=== PATIENT | female | born 1955 | race Caucasian/White ===

== ENCOUNTER 2025-03-27 11:51 | Inpatient (IN) | payer OTHER ==
[~2025-03-27] VITALS: Ht 162.6 cm; Wt 73.5 kg
--- NOTE | 2025-03-27 12:25 | EKG ---
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
[2025-03-27 12:56] LABS: IMMATURE GRANULOCYTE ABSOLUTE 0.54 K/uL (0-1); NUCLEATED RED BLOOD CELLS 0.2 % (0.0-0.19); PLATELET COUNT (AUTO) 229 K/uL (130-400); RED BLOOD CELL COUNT(AUTO) 4.11 MIL/uL (4.00-5.50); RED CELL DISTRIBUTION WIDTH 14.1 % (11.0-15.5); WHITE BLOOD COUNT (AUTO) 10.3 K/uL (4.8-10.8)
[2025-03-27] MEDS: 0.9%NACL 1000ML 1,000 ML IV STA (13:01)
[2025-03-27 13:20] LABS: ASPARTATE AMINOTRANSFERASE 24.0 U/L (10-37); CREATININE 0.8 mg/dL (0.5-1.0); GLOMERULAR FILTR. RATE CALC 79.0 mL/min (>90); GLUCOSE,RANDOM 133.0 mg/dL (70-105); SODIUM SERUM 137.0 mmol/L (136-145); TOTAL PROTEIN, SERUM 5.7 g/dL (6.0-8.3); UREA NITROGEN, BLOOD 39.0 mg/dL (7-18)
--- NOTE | 2025-03-27 13:21 | HMCIMG ---
EXAM: CR Chest, 1 View. CLINICAL HISTORY: sob COMPARISON: None provided. FINDINGS: LUNGS: The lungs show no infiltrate or other acute finding. PLEURAL SPACES: No evidence of pleural effusion or pneumothorax. MEDIASTINUM: Cardiac size and mediastinal contours within normal limits. BONES: No aggressive appearing osseous lesion seen. Cervical and thoracolumbar hardware. IMPRESSION: 1. No acute cardiopulmonary findings. /[place]
[2025-03-27 13:47] LABS: APPEARANCE,URINE CLEAR (CLEAR); GLUCOSE, URINE (UA) NEGATIVE (NEGATIVE); LEUKOCYTE ESTERASE ,URINE NEGATIVE Leu/uL (NEGATIVE); NITRATE,URINE NEGATIVE (NEGATIVE); OCCULT BLOOD,URINE NEGATIVE (NEGATIVE)
[2025-03-27 13:48] LABS: ADD UA MICROSCOPIC NO
--- NOTE | 2025-03-27 13:53 | ERN ---
ED Note History of Present Illness Stated Complaint: LUPUS, EYES SWELLING Chief Complaint: Other Problems Time Seen by MD: 11:59 Time Seen by Midlevel: 12:04 Dictation: 70 female with a history of lupus, RA and hypertension coming in with complaints of lupus flare. Patient states she has been sleeping all day and that is not like her, complaining of trouble catching her breath and controlling her blood pressure. Also states she has had diarrhea for two weeks with swollen eyelids. Patient states she is taking o[place]on from [place] for six weeks, sees a doctor in [place] and told her that she needed him with a bolus unknown but she was unable to obtain it in [place]. On my triage patient is anxious crying also stating that her grandson one week ago. Signs are stable on upon my triage. Allergies: Coded Allergies: Penicillins (Unverified Allergy, Unknown, 03/27/25) Past Medical History Past Medical History: Angina, Renal Failure, Other Additional Past Medical Hx: LUPUS Surgical History: None Surgical History Other: BACK SURGERIES, JULIA KNEE SX History: Not Applicable RN Note Reviewed/Agreed w/PFSH: Yes Review of System Dictation Constitutional: Negative for fever,chills, and weight loss Eyes: Negative for injury, pain,redness, and discharge ENT: Negative for injury,pain or swelling Cardiovascular: Negative for chest pain, palpitations, and edema Respiratory: Negative for shortness of breath, cough, and wheezing, Abdomen/GI: Negative for abdominal pain, nausea, vomiting, diarrhea, and constipation Back: Negative for injury and pain : Negative for injury, bleeding and discharge MS/Extremity: Negative for injury and deformity Skin: Negative for rash, and discoloration Neuro: Negative for headache, weakness, numbness, tingling, and seizure Psych: Negative for suicide ideation, homicidal ideation, and hallucinations Review of Systems: was completed Initial Vital Sign VS Vital Signs Date Time Temp Pulse Resp B/P (MAP) Pulse Ox O2 Delivery O2 Flow Rate FiO2 03/27/25 11:53 98.2 98 18 163/86 98 Room Air 03/27/25 12:45 0 21 Physical Exam Dictation General: awake, alert, NAD Head/Face: Normocephalic, atraumatic Eyes: PERRL, EOMI, vision at baseline ENT: oral cavity clear, TMs clear, no signs of infection Neck: Trachea midline, supple, no nuchal rigidity Cardiovascular: RRR, normal S1/S2, No MRGs, no JVD Respiratory: CTAB, no respiratory distress, No rales or wheezes Abdomen: Soft, non-tender, non-distended, normal bowel sounds, no guarding or rebound. Skin: Warm, dry, normal turgor, no rash MS/Extremity: Pulses equal, no cyanosis, neurovascular intact, FROM Neuro: COAx4, GCS 15, strength 5/5, CN 2-12 intact, normal cerebellar exam, normal gait, Psych: Normal behavior, mood, and affect normal Results (Laboratory/Radiology) Laboratory/Radiology Laboratory Tests Test 03/27/25 12:44 03/27/25 13:37 White Blood Count 10.3 K/uL (4.8-10.8) Red Blood Count 4.11 MIL/uL (4.00-5.50) Hemoglobin 12.3 g/dL (12.0-16.0) Hematocrit 36.6 % (36-48) Mean Corpuscular Volume 89.1 fL (79-99) Mean Corpuscular Hemoglobin 29.9 pg (27.0-33.0) Mean Corpuscular Hemoglobin Concent 33.6 g/dL (32.0-36.0) Red Cell Distribution Width 14.1 % (11.0-15.5) Platelet Count 229 K/uL (130-400) Mean Platelet Volume 9.2 fL (7.5-10.5) Immature Granulocyte % (Auto) 5.2 % (0-1) H Neutrophils (%) (Auto) 83.5 % (40.0-77.0) H Lymphocytes (%) (Auto) 5.3 % (21.0-51.0) L Monocytes (%) (Auto) 5.7 % (3.0-13.0) Eosinophils (%) (Auto) 0.0 % (0.0-8.0) Basophils (%) (Auto) 0.3 % (0.0-5.0) Neutrophils # (Auto) 8.6 K/uL (1.8-7.7) H Lymphocytes # (Auto) 0.6 K/uL (1.0-4.8) L Monocytes # (Auto) 0.6 K/uL (0.1-1.0) Eosinophils # (Auto) 0.00 K/uL (0.00-0.70) Basophils # (Auto) 0.03 K/uL (0.00-0.20) Absolute Immature Granulocyte (auto 0.54 K/uL (0-1) Nucleated Red Blood Cells 0.2 % (0.0-0.19) H White Cell Morphology Comment See comments Erythrocyte Sedimentation Rate < 1 MM/HR (0-30) Sodium Level 137 mmol/L (136-145) Potassium Level 3.7 mmol/L (3.5-5.1) Chloride Level 97 mmol/L (101-111) L Carbon Dioxide Level 34 mmol/L (21-32) H Blood Urea Nitrogen 39 mg/dL (7-18) H Creatinine 0.8 mg/dL (0.5-1.0) Glomerular Filtration Rate Calc 79 mL/min (>90) Random Glucose 133 mg/dL (70-105) H Lactic Acid Level 3.0 mmol/L (0.8-2.5) H Total Calcium 8.4 mg/dL (8.5-10.1) L Total Bilirubin 0.7 mg/dL (0.2-1.0) Direct Bilirubin 0.2 mg/dL (0.0-0.3) Aspartate Amino Transf (AST/SGOT) 24 U/L (10-37) Alanine Aminotransferase (ALT/SGPT) 63 U/L (12-78) Alkaline Phosphatase 39 U/L (50-136) L Troponin I High Sensitivity 167 ng/L (4-50) *H C-Reactive Protein, Quantitative 0.60 mg/L (0.5-3.0) Total Protein 5.7 g/dL (6.0-8.3) L Albumin 3.1 g/dL (3.5-5.0) L Lipase 57 U/L (16-77) Thyroid Stimulating Hormone (TSH) 0.02 uIU/mL (0.36-3.74) L Urine Color LIGHT-YELLOW (YELLOW) Urine Appearance CLEAR (CLEAR) Urine pH 7.0 (5.0-8.0) Urine Specific [place] 1.008 (1.001-1.031) Urine Protein NEGATIVE mg/dL (NEGATIVE) Urine Glucose (UA) NEGATIVE mg/dL (NEGATIVE) Urine Ketones NEGATIVE mg/dL (NEGATIVE) Urine Occult Blood NEGATIVE (NEGATIVE) Urine Nitrate NEGATIVE (NEGATIVE) Urine Bilirubin NEGATIVE mg/dL (NEGATIVE) Urine Urobilinogen 0.2 mg/dL (0.2-1.0) Urine Leukocyte Esterase NEGATIVE Nathanael/uL M: CR Chest, 1 View. CLINICAL HISTORY: sob COMPARISON: None provided. FINDINGS: LUNGS: The lungs show no infiltrate or other acute finding. PLEURAL SPACES: No evidence of pleural effusion or pneumothorax. MEDIASTINUM: Cardiac size and mediastinal contours within normal limits. BONES: No aggressive appearing osseous lesion seen. Cervical and thoracolumbar hardware. IMPRESSION: 1. No acute cardiopulmonary findings. /[place] Labs Reviewed?: Yes EKG Comment: EKGs done at 12:19 p.m.. Sinus rhythm at a rate of 81. Probable left atrial enlargement. No STEMI interpreted by ER MD ED Course ED Course Orders Procedure Category Date Status Time Cbc With Differential LAB 03/27/25 Complete 12:10 Basic Metabolic Panel LAB 03/27/25 Complete 12:10 Hepatic Function Panel LAB 03/27/25 Complete 12:10 Lipase LAB 03/27/25 Complete 12:10 Troponin I High LAB 03/27/25 Complete Sensitivity 12:10 12 Lead Ekg Tracing- EKG 03/27/25 Complete Technical 12:10 0.9%Nacl 1000ml (Ns PHA 03/27/25 Complete 1000ml) 12:10 Thyroid Stimulating LAB 03/27/25 Complete Hormone 12:12 Lactic Acid LAB 03/27/25 Complete 12:12 Blood Cult DAHLIA 03/27/25 In Process 12:12 Chest 1vw RAD 03/27/25 Resulted 12:14 Erythrocyte Sed Rate LAB 03/27/25 Complete 12:39 Crp Quantitative LAB 03/27/25 Complete 12:44 Urinalysis Profile LAB 03/27/25 Complete 13:38 Levofloxacin 500 PHA 03/27/25 Complete Mg/D5w 100 Ml 14:07 0.9%Nacl 1000ml (Ns PHA 03/27/25 In Process 1000ml) 14:30 Current Medications Medications (Trade) Dose Ordered Sig/Hilda Route PRN Reason Start Time Stop Time Status Last Admin Dose Admin Levofloxacin/ Dextrose 100 ml @ 100 mls/hr ONCE STAT IV 03/27/25 14:07 03/27/25 15:06 DC 03/27/25 14:29 Sodium Chloride 1,000 ml @ 1,000 mls/hr Q1H STAT IV 03/27/25 12:10 03/27/25 13:09 DC 03/27/25 13:01 Sodium Chloride 2,205 ml @ 735 mls/hr ONCE ONCE IV 03/27/25 14:30 03/27/25 17:29 03/27/25 14:29 Vital Signs Date Time Temp Pulse Resp B/P (MAP) Pulse Ox O2 Delivery O2 Flow Rate FiO2 03/27/25 14:45 98.2 75 18 128/71 98 Room Air* 0 21 03/27/25 13:43 98.2 72 17 158/83 99 Room Air* 0 21 03/27/25 12:45 75 18 144/78 98 Room Air* 0 21 03/27/25 11:53 98.2 98 18 163/86 98 Room Air 1430/PATIENT IS HEMODYNAMICALLY STABLE WITH A LACTIC ACID OF 3.0. SHE WILL BE GIVEN 30 PER KILOS FLUIDS WITH BROAD-SPECTRUM ANTIBIOTICS. SHE WILL BE INITIATED AND ADMITTED TO THE HOSPITAL FOR FURTHER EVALUATION AND TREATMENT [id number]/SPOKE WITH . REVIEWED EKG LABS CHEST X-RAY AND INTERVENTIONS FOR SEPSIS. HE AGREED TO ADMIT HEART Score Response (Comments) Value EKG: Repolarization changes 1 Age: > 65yrs (+2) 2 Risk Factors: 1-2 risk factors (+1) 1 Initial Troponin: Normal limit (0) 0 Total 4 Medical Decision Making MDM MDM: DIFFERENTIAL DIAGNOSIS: ACS/AMI/ELECTROLYTE IMBALANCE/DEHYDRATION/PNEUMONIA/BRONCHITIS/SYSTEMIC LUPUS FLARE/SEPSIS RATIONALE: TESTS CONSIDERED AND ORDERED SECONDARY TO SHARED DECISION MAKING INCLUDE: LABS, ECG AND RADIOLOGY PREVIOUS OUTSIDE RECORDS REVIEWED: OLD ER VISITS. RISK OF COMPLICATION AND/OR MORBIDITY OR MORTALITY OF PATIENT MANAGEMENT: NONE MEDICATIONS-PER MEDICATION RECONCILIATION NEED FOR HOSPITALIZATION: PATIENT DOES MEET CRITERIA FOR HOSPITALIZATION. PATIENT WILL NEED TO BE ADMITTED FOR LUPUS TREATMENT FLUIDS BROAD-SPECTRUM ANTIBIOTICS NEED FOR EMERGENCY MAJOR/MINOR SURGERY: NO THERE ARE NO SOCIAL CONCERNS WITH THIS PATIENT. PRESCRIPTION DRUG MANAGEMENT PRESCRIPTIONS WILL INCLUDE SYMPTOMATIC CARE PATIENT'S PRIOR EXTERNAL MEDICAL RECORDS FROM OTHER ER VISITS WERE REVIEWED BY ME INDICATED. PRIOR TESTING AND RESULTS FROM PREVIOUS VISITS WERE REVIEWED. PRIOR TESTS WERE TAKEN INTO ACCOUNT WITH MEDICAL DECISION MAKING AND RESOURCE UTILIZATION, INDEPENDENT HISTORIAN/HISTORIANS WERE USED TO OBTAIN COMPLETE MEDICAL HISTORY. I INDEPENDENTLY INTERPRETED THE TEST THAT WERE PERFORMED, RESULTS WERE REVIEWED BY ME AND CONSIDERED FINDINGS ON RADIOLOGY IF ORDERED. MEDICAL MANAGEMENT AND EXAMINATION INTERPRETATION DISCUSSIONS WERE HAD BY ME WITH OTHER QUALIFIED HEALTHCARE PROFESSIONALS INDICATED FOR THE PATIENT'S CARE. DX & DISP Disposition: Inpatient Decision to Admit Time: 14:33 Departure Impression: Primary Impression: Systemic lupus erythematosus (SLE) in adult Additional Impressions: Elevated troponin level not due to acute coronary syndrome, Stage 2 chronic kidney disease, Hyperglycemia, Sepsis, Grieving Condition: Stable Referrals: SELF,REFERRAL (PCP) Time of Disposition: 14:33 I have reviewed the case, and I agree with, Diagnosis and Plan PHILIPP ADAMS REGULATORY LAW SPECIALIST Mar 27, 2025 13:53 ALVINA VÁZQUEZ REGISTERED RESPIRATORY THERAPIST Mar 27, 2025 14:22
[2025-03-27] MEDS: 0.9%NACL 1000ML 2,205 ML IV ONE (14:29)
--- NOTE | 2025-03-27 16:18 | HP ---
[facility] HISTORY AND PHYSICAL Date of Service: Mar 27, 2025 Time of Service: 16:18 HISTORY OF PRESENT ILLNESS: 70-year-old female with past medical history of SLE, hypothyroidism,, history of LA history of CHF who presented to the hospital secondary to generalized weakness. Patient states for the past two weeks she has noted that she has been having generalized weakness with associated myalgias. She is also having episodes of fevers at home. She denies any chest pain, abdominal pain, nausea, vomiting. She has noted loose stools at home but it is not watery. She has not noted any melena, hematochezia, hematemesis. Denied any dysuria, hematuria. She does feel short of breath at rest and with exertion. She has not been able to ambulate much secondary to generalized weakness. She has been using her walker for ambulation. She states she was being seen by rheumatology in [facility] but thereafter moved to [place] for further care since she was unable to afford her visits. She has been currently seen by advice clerk in [place]. She is currently taking Plaquenil and possibly Imuran. She was recently started on prednisone due to concern for lupus flare by her advice clerk in [place]. She states she has been taking around 50 mg prednisone q.4 hours to treat her flare without improvement. She has been seen by multiple specialist in the past. Per patient she states there was also concern for voltage gated possible myopathy in the past. She has had ' white spots' in her brain in the past and was previously worked up for MS. She was being seen by a neurologist in [place] in the past. Patient's advice clerk recommended her to be admitted to the hospital due to concern for lupus flare. She denied any cough, sputum production. Additionally she states she has had a history of LA in the past and has seen a dredge captain in [place] in the past. Labs in the ER were notable for white count of 10.3, hemoglobin was 12.3, platelet count was 229 K, sodium was 137, potassium was 3.7, bicarb was , creatinine was 0.8, alk-phos was 39, troponin was mildly elevated at 167, TSH was low at 0.02 The patient underwent a chest x-ray which did not show any acute infiltrates. In the ER patient received 30 per mL kg fluids and was started on Levaquin. REVIEW OF SYSTEMS CONSTITUTIONAL: Denies chills, or night sweats. No unintentional weight loss reported. Positive for fever, myalgias, generalized malaise NEUROLOGICAL: Denies headache, amaurosis fugax, motor weakness, sensory deficit, vertigo/spinning sensation, gait abnormalities, or tremors. Positive for falls ENT: No hearing loss, otalgia, otorrhea, rhinitis, rhinorrhea, hoarseness, or sore throat. CARDIOVASCULAR: Denies any exertional angina, dyspnea on exertion, orthopnea, paroxysmal nocturnal dyspnea, palpitations, life-threatening arrhythmias, claudication. PULMONARY: Denies any cough, phlegm/sputum, hemoptysis, pleuritic chest pain. Positive for shortness of breaths GASTROINTESTINAL: Denies any type of dysphagia to either liquids or solids. Denies nausea, vomiting, pyrosis, early satiety, abdominal pain, diarrhea, constipation, or changes in stool consistency or caliber. Denies coffee-ground emesis, hematemesis, hematochezia, or melanotic stools. GENITOURINARY: Denies frequency, urgency, nocturia, hematuria or incontinence (Storage/Irritative symptoms.) Low urinary stream, straining to void, urinary intermittency or hesitancy, splitting of the voiding stream, terminal dribbling. ENDOCRINOLOGIC: Denies polyuria, polydipsia, polyphagia or heat/cold intolerances. HEMATOLOGIC: Denies thrombophilia/previous clots, or coagulopathy/bleeding disorders. ONCOLOGIC: Denies personal history of malignancy. DERMATOLOGIC: Denies rashes or pruritus. PSYCHIATRIC: Denies any suicidal or homicidal ideation. Denies hallucinations. PAST MEDICAL HISTORY: SLE, hypothyroidism, history of LA, history of CHF, history of cauda equina syndrome history of back surgeries PAST SURGICAL HISTORY: History of multiple back surgeries, history of knee surgery, history of shoulder surgery PAST SOCIAL HISTORY: Denied any smoking, alcohol, drug use. She is currently residing in [place] FAMILY HISTORY: Denied any pertinent family history Coded Allergies: Penicillins (Unverified Allergy, Unknown, 03/27/25) PHYSICAL EXAM GENERAL APPEARANCE: The patient is awake, alert, and oriented, in no acute cardiopulmonary distress. NEUROLOGICAL: Cranial nerves II-XII grossly intact. Motor is 4/5 in bilateral upper and lower extremities proximal to distal. No sensory deficits. Patient's range of motion is intact in the upper and lower extremity HEENT: Face is symmetric. Pupils are equal and reactive. Extraocular movements are intact. NECK: Supple. No JVD. No thyromegaly. No submental, submandibular, pre- /postauricular, occipital or supraclavicular lymphadenopathy. CHEST: Normal chest expansion. No Telemetry. LUNGS: Absence of any rales, rhonchi or any wheezing. CARDIOVASCULAR: Regular. S1 and S2 normal. No appreciable rubs, murmurs or gallops. ABDOMEN: Soft, nontender, and nondistended. There is no rebound, voluntary guarding, or rigidity. : Deferred. No Singh. EXTREMITIES: Non-edematous and not cyanotic. No clubbing. Good capillary refill. SKIN: No skin breakdown. Vital Sign (Last 24 Hours) 03/27/25 14:45 Temp 98.2 Pulse 75 Resp 18 B/P (MAP) 128/71 Pulse Ox 98 O2 Delivery Room Air* O2 Flow Rate 0 FiO2 21 LABS: Laboratory: Test 03/27/25 13:37 03/27/25 12:44 Range/Units Urine Color LIGHT-YELLOW YELLOW Urine Appearance CLEAR CLEAR Urine pH 7.0 5.0-8.0 Urine Specific [place] 1.008 1.001-1.031 Urine Protein NEGATIVE NEGATIVE mg/dL Urine Glucose (UA) NEGATIVE NEGATIVE mg/dL Urine Ketones NEGATIVE NEGATIVE mg/dL Urine Occult Blood NEGATIVE NEGATIVE Urine Nitrate NEGATIVE NEGATIVE Urine Bilirubin NEGATIVE NEGATIVE mg/dL Urine Urobilinogen 0.2 0.2-1.0 mg/dL Urine Leukocyte Esterase NEGATIVE NEGATIVE Nathanael/uL White Blood Count 10.3 4.8-10.8 K/uL Red Blood Count 4.11 4.00-5.50 MIL/uL Hemoglobin 12.3 12.0-16.0 g/dL Hematocrit 36.6 36-48 % Mean Corpuscular Volume 89.1 79-99 fL Mean Corpuscular Hemoglobin 29.9 27.0-33.0 pg Mean Corpuscular Hemoglobin Concent 33.6 32.0-36.0 g/dL Red Cell Distribution Width 14.1 11.0-15.5 % Platelet Count 229 130-400 K/uL Mean Platelet Volume 9.2 7.5-10.5 fL Immature Granulocyte % (Auto) 5.2 H 0-1 % Neutrophils (%) (Auto) 83.5 H 40.0-77.0 % Lymphocytes (%) (Auto) 5.3 L 21.0-51.0 % Monocytes (%) (Auto) 5.7 3.0-13.0 % Eosinophils (%) (Auto) 0.0 0.0-8.0 % Basophils (%) (Auto) 0.3 0.0-5.0 % Neutrophils # (Auto) 8.6 H 1.8-7.7 K/uL Lymphocytes # (Auto) 0.6 L 1.0-4.8 K/uL Monocytes # (Auto) 0.6 0.1-1.0 K/uL Eosinophils # (Auto) 0.00 0.00-0.70 K/uL Basophils # (Auto) 0.03 0.00-0.20 K/uL Absolute Immature Granulocyte (auto 0.54 0-1 K/uL Nucleated Red Blood Cells 0.2 H 0.0-0.19 % White Cell Morphology Comment See comments Erythrocyte Sedimentation Rate < 1 0-30 MM/HR Sodium Level 137 136-145 mmol/L Potassium Level 3.7 3.5-5.1 mmol/L Chloride Level 97 L 101-111 mmol/L Carbon Dioxide Level 34 H 21-32 mmol/L Blood Urea Nitrogen 39 H 7-18 mg/dL Creatinine 0.8 0.5-1.0 mg/dL Glomerular Filtration Rate Calc 79 >90 mL/min Random Glucose 133 H 70-105 mg/dL Lactic Acid Level 3.0 H 0.8-2.5 mmol/L Total Calcium 8.4 L 8.5-10.1 mg/dL Total Bilirubin 0.7 0.2-1.0 mg/dL Direct Bilirubin 0.2 0.0-0.3 mg/dL Aspartate Amino Transf (AST/SGOT) 24 10-37 U/L Alanine Aminotransferase (ALT/SGPT) 63 12-78 U/L Alkaline Phosphatase 39 L 50-136 U/L Troponin I High Sensitivity 167 *H 4-50 ng/L C-Reactive Protein, Quantitative 0.60 0.5-3.0 mg/L Total Protein 5.7 L 6.0-8.3 g/dL Albumin 3.1 L 3.5-5.0 g/dL Lipase 57 16-77 U/L Thyroid Stimulating Hormone (TSH) 0.02 L 0.36-3.74 uIU/mL Current Medications Medications (Trade) Dose Ordered Sig/Hilda Route PRN Reason Start Time Stop Time Status Last Admin Dose Admin Acetaminophen (TYLenol 500MG TAB) 500 mg Q6H PRN PO MILD PAIN (1-3) 03/27/25 16:30 04/26/25 16:29 UNV Famotidine (Pepcid 20mg Vial) 20 mg BID IV 03/27/25 21:00 04/26/25 20:59 UNV Levofloxacin/ Dextrose 100 ml @ 100 mls/hr ONCE STAT IV 03/27/25 14:07 03/27/25 15:06 DC 03/27/25 14:29 100 MLS/HR Magnesium Sulfate 50 ml @ 0 mls/hr PROTOCOL PRN IV hypomagnesemia 03/27/25 16:30 04/26/25 16:29 UNV Potassium Chloride 100 ml @ 100 mls/hr AD PRN IV POTASSIUM PROTOCOL 03/27/25 16:30 04/26/25 16:29 UNV Potassium Chloride (K-Dur/Klor-Con 20meq) 20 meq AD PRN PO POTASSIUM PROTOCOL 03/27/25 16:30 04/26/25 16:29 UNV Potassium Chloride (KCl 10% Elixir 20meq/15ml) 20 meq AD PRN PO POTASSIUM PROTOCOL 03/27/25 16:30 04/26/25 16:29 UNV Sodium Chloride 1,000 ml @ 1,000 mls/hr Q1H STAT IV 03/27/25 12:10 03/27/25 13:09 DC 03/27/25 13:01 1,000 MLS/HR DIAGNOSTICS / RADIOLOGY: [ ] ASSESSMENT: Possible lupus flare POA Fever Generalized weakness Immunosuppression History of SLE History of possible rheumatoid arthritis Hypothyroidism Debility History of Glaucoma Mild troponin elevation PLAN: -patient to be admitted to medical-surgical unit with telemetry -in reference to possible lupus flare. We will check C3, C4, antidouble stranded DNA. We will start patient on methylprednisolone 40 mg q.8 hours. Check CK level, ESR. Obtain patient's home medications which will be reconciled once available. Obtain patient's medical records from [facility] and from her primary weigh and charge worker in [place]. I did inform the patient that we do not have a advice clerk who comes to this hospital. The patient will need to follow up on advice clerk on discharge needed -follow up on blood culture, urine culture. Continue patient on Levaquin. -in reference to troponin elevation. The patient currently denies any active chest. We will trend troponins q.6 hours. Obtain a echocardiogram. We will request consultation with Cardiology -check TSH, hemoglobin A1c -obtain PT evaluation -obtain a CT -further orders per hospitalization course. Advanced Care Planning Which of the following were discussed: Hospice care: Yes __ No _x_ Therapeutic options: Yes __ No __ Advance directives: Yes __ No __ Other discussions: Discussed with who?: patient (Patient, family or surrogates) Voluntary nature of this service was explained to the patient? Yes _x_ No __ Amount of time spent: 25 minutes CHRYSTAL Marie MD, MD Mar 27, 2025 16:18
[2025-03-27] MEDS ORDERED: MAGNESIUM 2GM PREMIX 50ML 50 ML IV PRN (16:30)
[2025-03-27] MEDS ORDERED: PoTASSium chl 10% ELIXIR 20MEQ 20 MEQ/15 ML UDCUP PO PRN (16:30)
--- NOTE | 2025-03-27 17:20 | NUR ---
PT STATES SHE HAS FIRED HER MD AT [facility] 2 MONTHS AGO AFTER FILING WITH PT ADV[employer]ACY. PT STATES SHE HAS SOME RECORDS WITH HER BUT NEEDS TO BE OUT OF THE ED AND INSIDE A PRIVATE ROOM TO BE ABLE TO GO THROUGH THEM.
[2025-03-27] MEDS: Solu-medROL 40MG VIAL IVP SCH (17:23)
--- NOTE | 2025-03-27 17:33 | NUR ---
DR. WALKER WAS ON THE FLOOR, ADVISED THAT PT WAS UNHAPPY WITH DIET ORDER AND SENT OFF HER TO GET HER FOOD SHE DID NOT WANT TO EAT RECOMMENDED DIET. PER DR. WALKER OK TO CHANGE HER TO HEART HEALTHY DIET.
--- NOTE | 2025-03-27 18:39 | HMCIMG ---
EXAM: Non-contrast CT examination of the Brain CLINICAL HISTORY: Generalized weakness. TECHNIQUE: Thin collimated axial CT images of the brain were obtained with sagittal and coronal reformatted images also submitted. CT scan done according to ALARA (As Low as Reasonably Achievable). CONTRAST USED: None. COMPARISON: None provided. FINDINGS: Diffuse age-related cerebral atrophy is evident by dilated lateral ventricles, prominent cisterns, and sulcal spaces. Scattered hypodensities noted in the white matter of bilateral cerebral hemispheres, likely chronic small vessel ischemic changes. No acute cortical infarction, hemorrhage, mass or mass effect. No abnormal extra-axial fluid collections. The posterior fossa is unremarkable. The skull base and calvarium are intact. The included portions of the paranasal sinuses and mastoid air cells are clear. IMPRESSION: No acute intracranial abnormality is present. Mild diffuse age-related cerebral atrophy and chronic small vessel ischemic changes. /[place]
[2025-03-27 19:00] VITALS: BP 140/76; PULSE 65; RESP 18; TEMP 98.7
--- NOTE | 2025-03-27 19:00 | NUR ---
PT ARRIVED TO UNIT PT ARRIVED TO UNIT AT 1900 IN STABLE CONDITION, WITH HER . DR WALKER SUGETED PHYSICAL THERAPY AND SHE REFUSED. SHE WAS SITUATED AND CHANGED INTO A GOWN, I LEFT THE ROOM SHE WAS RESTING COMFORTABLE.
[2025-03-27 20:00] VITALS: O2SAT 97
[2025-03-27] MEDS: FAMOTIDINE 20MG VIAL IV SCH (20:49)
[2025-03-28] VITALS: BP_SYST 127; BP_SYST 128; BP_DIAS 58; BP_DIAS 74; PULSE 60; PULSE 62; RESP 16; RESP 18; TEMP 96.7; TEMP 98
[2025-03-28 04:00] VITALS: BP 154/74; PULSE 58; RESP 18; TEMP 97.8
[2025-03-28 04:26] LABS: IMMATURE GRANULOCYTE ABSOLUTE 0.30 K/uL (0-1); NUCLEATED RED BLOOD CELLS 0.0 % (0.0-0.19); PLATELET COUNT (AUTO) 181 K/uL (130-400); RED BLOOD CELL COUNT(AUTO) 3.66 MIL/uL (4.00-5.50); RED CELL DISTRIBUTION WIDTH 14.3 % (11.0-15.5); WHITE BLOOD COUNT (AUTO) 7.2 K/uL (4.8-10.8)
[2025-03-28 04:50] LABS: CREATININE 0.7 mg/dL (0.5-1.0); GLOMERULAR FILTR. RATE CALC 92.0 mL/min (>90); GLUCOSE,RANDOM 136.0 mg/dL (70-105); SODIUM SERUM 143.0 mmol/L (136-145); UREA NITROGEN, BLOOD 38.0 mg/dL (7-18)
[2025-03-28 04:52] LABS: ERYTHROCYTE SEDIMENTATION RATE < 1 MM/HR (0-30)
[2025-03-28 08:00] VITALS: BP 151/67; PULSE 56; RESP 19; TEMP 98.4
[2025-03-28] MEDS: PoTASSium chloRIDE 20MEQ ER 20 MEQ ERTAB PO PRN (09:59)
[2025-03-28] MEDS ORDERED: HYDR200T75 PO (10:42)
[2025-03-28] MEDS ORDERED: IPRA21SP NS (10:42)
[2025-03-28] MEDS ORDERED: BRIM5DRO5 OU (10:42)
[2025-03-28] MEDS ORDERED: DORZ10DR10 OU (10:42)
[2025-03-28] MEDS ORDERED: INDA2.5T5 PO (10:42)
[2025-03-28] MEDS ORDERED: CYCL1DRO14 OU (10:42)
[2025-03-28] MEDS ORDERED: ROSU40TA88 PO (10:42)
[2025-03-28] MEDS ORDERED: LEVO137T2 PO (10:42)
[2025-03-28] MEDS ORDERED: LISI10TA24 PO (10:42)
[2025-03-28] MEDS ORDERED: PRED20TA3 PO (10:42)
[2025-03-28] MEDS ORDERED: CHOL2000 PO (10:49)
[2025-03-28] MEDS ORDERED: TOPI-257 PO (10:49)
[2025-03-28] MEDS ORDERED: TOPI-97 PO (10:49)
[2025-03-28] MEDS ORDERED: ASPI-1012 PO (10:49)
[2025-03-28] MEDS ORDERED: MAGN400T53 PO (10:49)
[2025-03-28] MEDS: ASPIRIN 81 MG EC TAB PO SCH (11:00)
--- NOTE | 2025-03-28 11:18 | CONS ---
[facility] CARDIOLOGY CONSULTATION NOTE Date Patient Seen: Mar 28, 2025 Time of Visit: 11:12 Reason for Consultation: [Elevated troponin/abnormal ECG ] History of Present Illness: [70-year-old female with a past medical history of hypertension, hyperlipidemia, obesity, lupus, mild nonobstructive CAD who presented to [facility] with facial irritation and eye irritation along with mild shortness of breath. Upon arrival to [facility] further studies revealed patient is undergoing a lupus flare and was started on steroids. Her presenting ECG reveals sinus rhythm with anterolateral T-wave inversion suggestive of ischemia in her initial troponins were weakly elevated and flattened trend and if since down trended. On evaluation the bedside patient denies any chest pain, palpitations, dyspnea, or any other anginal equivalents. She denies a history of [place] or a family history of premature CAD. Per patient she has good functional capacity and does not develop any exertional cardiac symptoms and was last seen by a tax services intern approximately 4-5 years ago. Off note, patient stated approximately 4-5 years ago she was admitted for shortness of breath and was found to be in heart failure. She underwent coronary angiogram at that time and per patient was told she had mild nonobstructive coronary artery disease and was optimized with guideline directed therapy and repeat echo several months after her admission revealed systolic recovery and has been weaned off her guideline directed medical therapy. She denies a history of smoking or alcohol abuse. Since that time she has had no further cardiac events. She is currently asymptomatic and her blood pressure stable. Cardiology was consulted for elevated troponin abnormal ECG ] Past Medical History: [ Refer to HPI] Past Surgical History: [Refer to chart ] Family History: [Noncontributory ] Habits: [Never] smoker. [Denies] alcohol consumption. [Denies] illicit drug use Review of Systems: Review of 12 point systems is negative except per HPI Physical Examination: GENERAL: [No acute distress.] HEAD: [Normal with no signs of head trauma.] EYES: [PERRLA, EOMI, conjunctiva and sclera normal.] ENT: [Hearing grossly intact, normal oropharynx.] NECK: [Supple without JVD. There is no tenderness, lymphadenopathy, or masses. No thyromegaly. Normal carotid upstrokes without bruits.] LUNGS: [Clear breath sounds bilaterally. No wheezes, or rhonchi.] HEART: [Normal rate and rhythm. Normal S1 and S2 without mumurs, gallop or rub.] VASC: [Peripheral pulses +2 bilaterally.] ABD: [Bowel sounds normal, soft, nontender, no masses, no organomegaly. No audible bruits.] : [Not examined] LYMPH: [No lymphadenopathy noted.] EXT: [No clubbing, cyanosis or edema.] SKIN: [No rashes or lesions noted.] NEURO: [Awake, alert, and oriented x3. No focal sensory or strength deficits noted.] Vital Signs (last 8hr) Date Time Temp Pulse Resp B/P (MAP) Pulse Ox O2 Delivery O2 Flow Rate FiO2 03/28/25 08:00 98.4 56 19 151/67 97 Room Air 21 03/28/25 04:00 97.9 58 18 154/74 94 Room Air Laboratory: [ ] Hematology Labs: Test 03/28/25 03:56 03/27/25 12:44 Range/Units White Blood Count 7.2 # 4.8-10.8 K/uL Red Blood Count 3.66 L 4.00-5.50 MIL/uL Hemoglobin 11.0 L 12.0-16.0 g/dL Hematocrit 32.7 L 36-48 % Mean Corpuscular Volume 89.3 79-99 fL Mean Corpuscular Hemoglobin 30.1 27.0-33.0 pg Mean Corpuscular Hemoglobin Concent 33.6 32.0-36.0 g/dL Red Cell Distribution Width 14.3 11.0-15.5 % Platelet Count 181 130-400 K/uL Mean Platelet Volume 9.3 7.5-10.5 fL Immature Granulocyte % (Auto) 4.2 H 0-1 % Neutrophils (%) (Auto) 86.1 H 40.0-77.0 % Lymphocytes (%) (Auto) 6.0 L 21.0-51.0 % Monocytes (%) (Auto) 3.6 3.0-13.0 % Eosinophils (%) (Auto) 0.0 0.0-8.0 % Basophils (%) (Auto) 0.1 0.0-5.0 % Neutrophils # (Auto) 6.2 1.8-7.7 K/uL Lymphocytes # (Auto) 0.4 L 1.0-4.8 K/uL Monocytes # (Auto) 0.3 0.1-1.0 K/uL Eosinophils # (Auto) 0.00 0.00-0.70 K/uL Basophils # (Auto) 0.01 0.00-0.20 K/uL Absolute Immature Granulocyte (auto 0.30 0-1 K/uL Nucleated Red Blood Cells 0.0 0.0-0.19 % Erythrocyte Sedimentation Rate < 1 0-30 MM/HR White Cell Morphology Comment See comments Chemistry Labs: Test 03/28/25 05:31 03/28/25 03:56 03/27/25 21:52 03/27/25 16:51 Range/Units Whole Blood Glucose 156 H 70-110 MG/DL Sodium Level 143 136-145 mmol/L Potassium Level 3.0 *L 3.5-5.1 mmol/L Chloride Level 104 101-111 mmol/L Carbon Dioxide Level 30 21-32 mmol/L Blood Urea Nitrogen 38 H 7-18 mg/dL Creatinine 0.7 0.5-1.0 mg/dL Glomerular Filtration Rate Calc 92 >90 mL/min Random Glucose 136 H 70-105 mg/dL Total Calcium 8.1 L 8.5-10.1 mg/dL Troponin I High Sensitivity 162 *H 4-50 ng/L Lactic Acid Level 1.8 0.8-2.5 mmol/L Total Creatine Kinase 86 21-232 U/L Procalcitonin < 0.05 L 0.05-0.5 ng/mL Test 03/27/25 12:44 Range/Units Hemoglobin A1c 6.4 H 4.0-6.0 % Estimated Average Glucose (eAG) 137 H 70-126 mg/dL Total Bilirubin 0.7 0.2-1.0 mg/dL Direct Bilirubin 0.2 0.0-0.3 mg/dL Aspartate Amino Transf (AST/SGOT) 24 10-37 U/L Alanine Aminotransferase (ALT/SGPT) 63 12-78 U/L Alkaline Phosphatase 39 L 50-136 U/L C-Reactive Protein, Quantitative 0.60 0.5-3.0 mg/L Total Protein 5.7 L 6.0-8.3 g/dL Albumin 3.1 L 3.5-5.0 g/dL Lipase 57 16-77 U/L Thyroid Stimulating Hormone (TSH) 0.02 L 0.36-3.74 uIU/mL Diagnostics / Radiology: [Copy/Paste Echos/Imaging Report here] Assessment: [ Elevated troponins Abnormal ECG Lupus flare Hypertension Hyperlipidemia Obesity] Plan: # Elevated troponin: Patient presented with a lupus flare and denies any anginal symptoms or equivalents Her presenting ECG did reveal sinus rhythm with anterolateral T-wave inversion suggestive of ischemia Her troponins were weakly elevated, flattened trend and if since down trended Patient states proximally 4-5 years ago was admitted for acute systolic heart failure and underwent coronary angiogram was found to have mild nonobstructive CAD She was initiated on GDMT at that time and following several months she was found to have systolic recovery and has not been evaluated by Cardiology in over 4 years Low suspicion for ACS at this time. Continue with home lisinopril 10 mg q.day and start aspirin 81 mg q.day and Lipitor 40 mg q.h.s. Please order formal 2D echocardiogram to assess systolic and valvular function If echo was benign we will consider outpatient coronary CTA Please keep patient on telemetry. Monitor/replace electrolytes as needed Thank you for this consult. Cardiology will continue to follow along pending 2D echocardiogram results DIOGO Bernard MD, MD Mar 28, 2025 11:18
[2025-03-28 12:00] VITALS: BP 137/76; PULSE 57; RESP 20; TEMP 97
[2025-03-28 16:00] VITALS: BP 177/71; PULSE 58; RESP 20; TEMP 97.8
--- NOTE | 2025-03-28 16:13 | PN ---
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 She does have multiple reasons for arthralgias including osteoarthritis a torn rotator cuff bilateral pes anserine bursitis as well as osteoarthritis of both hands. She was being treated in [place] where she was living as well as at the [facility] in [place] and in [facility] by various hospitality aide equipment engineering technician and specialists in [place]. Most recently she was on a regimen of oral prednisone as well as Imuran. She states she was doing fairly well until about two weeks prior to admission in which she began having weakness and a flare-up of her lupus. Currently she feels a little bit better since she has been receiving methylprednisolone 40 mg q.6 hourly here. Review of systems 10 points reviewed and negative except as described above ] REVIEW OF SYSTEMS CONSTITUTIONAL: Denies chills, or night sweats. No unintentional weight loss reported. Positive for fever, myalgias, generalized malaise NEUROLOGICAL: Denies headache, amaurosis fugax, motor weakness, sensory deficit, vertigo/spinning sensation, gait abnormalities, or tremors. Positive for falls ENT: No hearing loss, otalgia, otorrhea, rhinitis, rhinorrhea, hoarseness, or sore throat. CARDIOVASCULAR: Denies any exertional angina, dyspnea on exertion, orthopnea, paroxysmal nocturnal dyspnea, palpitations, life-threatening arrhythmias, claudication. PULMONARY: Denies any cough, phlegm/sputum, hemoptysis, pleuritic chest pain. Positive for shortness of breaths GASTROINTESTINAL: Denies any type of dysphagia to either liquids or solids. Denies nausea, vomiting, pyrosis, early satiety, abdominal pain, diarrhea, cons tipation, or changes in stool consistency or caliber. Denies coffee-ground emesis, hematemesis, hematochezia, or melanotic stools. GENITOURINARY: Denies frequency, urgency, nocturia, hematuria or incontinence (Storage/Irritative symptoms.) Low urinary stream, straining to void, urinary intermittency or hesitancy, splitting of the voiding stream, terminal dribbling. ENDOCRINOLOGIC: Denies polyuria, polydipsia, polyphagia or heat/cold intolerances. HEMATOLOGIC: Denies thrombophilia/previous clots, or coagulopathy/bleeding disorders. ONCOLOGIC: Denies personal history of malignancy. DERMATOLOGIC: Denies rashes or pruritus. PSYCHIATRIC: Denies any suicidal or homicidal ideation. Denies hallucinations. Multiple arthralgias PHYSICAL EXAM GENERAL APPEARANCE: The patient is awake, alert, and oriented, in no acute cardiopulmonary distress. NEUROLOGICAL: Cranial nerves II-XII grossly intact. Motor is 4/5 in bilateral upper and lower extremities proximal to distal. No sensory deficits. Patient's range of motion is intact in the upper and lower extremity HEENT: Face is symmetric. Pupils are equal and reactive. Extraocular movements are intact. NECK: Supple. No JVD. No thyromegaly. No submental, submandibular, pre- /postauricular, occipital or supraclavicular lymphadenopathy. CHEST: Normal chest expansion. No Telemetry. LUNGS: Absence of any rales, rhonchi or any wheezing. CARDIOVASCULAR: Regular. S1 and S2 normal. No appreciable rubs, murmurs or gallops. ABDOMEN: Soft, nontender, and nondistended. There is no rebound, voluntary guarding, or rigidity. : Deferred. No Singh. EXTREMITIES: Non-edematous and not cyanotic. No clubbing. Good capillary refill. SKIN: No skin breakdown. Vital Signs (last 8hr) Date Time Temp Pulse Resp B/P (MAP) Pulse Ox O2 Delivery O2 Flow Rate FiO2 03/28/25 12:00 97.0 57 20 137/76 94 Room Air LABS: Laboratory: Test 03/28/25 12:51 03/28/25 03:56 03/27/25 21:52 03/27/25 16:51 Range/Units Whole Blood Glucose 128 H 70-110 MG/DL White Blood Count 7.2 # 4.8-10.8 K/uL Red Blood Count 3.66 L 4.00-5.50 MIL/uL Hemoglobin 11.0 L 12.0-16.0 g/dL Hematocrit 32.7 L 36-48 % Mean Corpuscular Volume 89.3 79-99 fL Mean Corpuscular Hemoglobin 30.1 27.0-33.0 pg Mean Corpuscular Hemoglobin Concent 33.6 32.0-36.0 g/dL Red Cell Distribution Width 14.3 11.0-15.5 % Platelet Count 181 130-400 K/uL Mean Platelet Volume 9.3 7.5-10.5 fL Immature Granulocyte % (Auto) 4.2 H 0-1 % Neutrophils (%) (Auto) 86.1 H 40.0-77.0 % Lymphocytes (%) (Auto) 6.0 L 21.0-51.0 % Monocytes (%) (Auto) 3.6 3.0-13.0 % Eosinophils (%) (Auto) 0.0 0.0-8.0 % Basophils (%) (Auto) 0.1 0.0-5.0 % Neutrophils # (Auto) 6.2 1.8-7.7 K/uL Lymphocytes # (Auto) 0.4 L 1.0-4.8 K/uL Monocytes # (Auto) 0.3 0.1-1.0 K/uL Eosinophils # (Auto) 0.00 0.00-0.70 K/uL Basophils # (Auto) 0.01 0.00-0.20 K/uL Absolute Immature Granulocyte (auto 0.30 0-1 K/uL Nucleated Red Blood Cells 0.0 0.0-0.19 % Erythrocyte Sedimentation Rate < 1 0-30 MM/HR Sodium Level 143 136-145 mmol/L Potassium Level 3.0 *L 3.5-5.1 mmol/L Chloride Level 104 101-111 mmol/L Carbon Dioxide Level 30 21-32 mmol/L Blood Urea Nitrogen 38 H 7-18 mg/dL Creatinine 0.7 0.5-1.0 mg/dL Glomerular Filtration Rate Calc 92 >90 mL/min Random Glucose 136 H 70-105 mg/dL Total Calcium 8.1 L 8.5-10.1 mg/dL Troponin I High Sensitivity 162 *H 4-50 ng/L Lactic Acid Level 1.8 0.8-2.5 mmol/L Total Creatine Kinase 86 21-232 U/L Procalcitonin < 0.05 L 0.05-0.5 ng/mL Test 03/27/25 13:37 03/27/25 12:44 Range/Units Urine Color LIGHT-YELLOW YELLOW Urine Appearance CLEAR CLEAR Urine pH 7.0 5.0-8.0 Urine Specific [place] 1.008 1.001-1.031 Urine Protein NEGATIVE NEGATIVE mg/dL Urine Glucose (UA) NEGATIVE NEGATIVE mg/dL Urine Ketones NEGATIVE NEGATIVE mg/dL Urine Occult Blood NEGATIVE NEGATIVE Urine Nitrate NEGATIVE NEGATIVE Urine Bilirubin NEGATIVE NEGATIVE mg/dL Urine Urobilinogen 0.2 0.2-1.0 mg/dL Urine Leukocyte Esterase NEGATIVE NEGATIVE Nathanael/uL White Cell Morphology Comment See comments Hemoglobin A1c 6.4 H 4.0-6.0 % Estimated Average Glucose (eAG) 137 H 70-126 mg/dL Total Bilirubin 0.7 0.2-1.0 mg/dL Direct Bilirubin 0.2 0.0-0.3 mg/dL Aspartate Amino Transf (AST/SGOT) 24 10-37 U/L Alanine Aminotransferase (ALT/SGPT) 63 12-78 U/L Alkaline Phosphatase 39 L 50-136 U/L C-Reactive Protein, Quantitative 0.60 0.5-3.0 mg/L Total Protein 5.7 L 6.0-8.3 g/dL Albumin 3.1 L 3.5-5.0 g/dL Lipase 57 16-77 U/L Thyroid Stimulating Hormone (TSH) 0.02 L 0.36-3.74 uIU/mL Current Medications Medications (Trade) Dose Ordered Sig/Hilda Route PRN Reason Start Time Stop Time Status Last Admin Dose Admin Acetaminophen (TYLenol 500MG TAB) 500 mg Q6H PRN PO MILD PAIN (1-3) 03/27/25 16:30 04/26/25 16:29 03/28/25 10:19 500 MG Aspirin (Aspirin 81mg Ec Tab) 81 mg DAILY PO 03/28/25 11:00 04/27/25 10:59 Atorvastatin Calcium (LIPItor 40MG) 80 mg HS PO 03/28/25 21:00 04/27/25 20:59 Brimonidine Tartrate (Alphagan P) 1 ML BID OU 03/28/25 21:00 04/27/25 20:59 Dorzolamide/ Timolol (Cosopt Eye Drops) 1 ML BID OU 03/28/25 21:00 04/27/25 20:59 Famotidine (Pepcid 20mg Vial) 20 mg BID IV 03/27/25 21:00 04/26/25 20:59 03/28/25 09:59 20 MG Home Med (Home Medication) BID NASAL 03/28/25 21:00 04/27/25 20:59 Home Med (Home Medication) BID OU 03/28/25 21:00 04/27/25 20:59 Home Med (Home Medication) DAILY PO 03/29/25 09:00 04/28/25 08:59 Hydroxychloroquine Sulfate (PLAQuenil 200MG) 300 mg DAILY PO 03/29/25 09:00 04/12/25 08:59 Insulin Human Regular (humuLIN R 100 UNIT/ML 3ML) INSULIN SLIDING SCAL... ACHS SQ 03/28/25 07:30 04/27/25 07:29 Levofloxacin/ Dextrose 100 ml @ 100 mls/hr ONCE STAT IV 03/27/25 14:07 03/27/25 15:06 DC 03/27/25 14:29 100 MLS/HR Levofloxacin/ Dextrose 100 ml @ 100 mls/hr Q24H IV 03/28/25 14:00 04/07/25 13:59 Levothyroxine Sodium (SYNTHroid 112MCG TAB) 112 mcg SYN PO 03/29/25 06:30 04/28/25 06:29 Levothyroxine Sodium (SYNTHroid 25MCG TAB) 25 mcg SYN PO 03/29/25 06:30 04/28/25 06:29 Lisinopril (Prinivil 10mg) 10 mg DAILY PO 03/28/25 11:00 04/27/25 10:59 Lisinopril (Prinivil 10mg) 10 mg DAILY PO 03/29/25 09:00 03/28/25 10:46 DC Magnesium Sulfate 50 ml @ 0 mls/hr PROTOCOL PRN IV hypomagnesemia 03/27/25 16:30 04/26/25 16:29 Methylprednisolone Sodium Succinate (Solu-medROL 40MG) 40 mg Q8H IVP 03/27/25 16:30 04/26/25 16:29 03/28/25 09:59 40 MG Miscellaneous Medication (Indapamide ) 1 tab DAILY PO 03/29/25 09:00 03/28/25 10:46 DC Miscellaneous Medication (Levothyroxine Sodium ) 1 tab ACBKFST PO 03/29/25 07:30 03/28/25 11:00 DC Potassium Chloride 100 ml @ 100 mls/hr AD PRN IV POTASSIUM PROTOCOL 03/27/25 16:30 04/26/25 16:29 Potassium Chloride (K-Dur/Klor-Con 20meq) 20 meq AD PRN PO POTASSIUM PROTOCOL 03/27/25 16:30 04/26/25 16:29 03/28/25 10:01 20 MEQ Potassium Chloride (KCl 10% Elixir 20meq/15ml) 20 meq AD PRN PO POTASSIUM PROTOCOL 03/27/25 16:30 04/26/25 16:29 Sodium Chloride 1,000 ml @ 1,000 mls/hr Q1H STAT IV 03/27/25 12:10 03/27/25 13:09 DC 03/27/25 13:01 1,000 MLS/HR Topiramate (TopaMAX) 50 mg BID PO 03/28/25 21:00 04/27/25 20:59 DIAGNOSTICS / RADIOLOGY: [ ] ASSESSMENT: Possible lupus flare POA Fever Generalized weakness Immunosuppression History of SLE History of possible rheumatoid arthritis Hypothyroidism Debility History of Glaucoma Mild troponin elevation PLAN: -patient to be admitted to medical-surgical unit with telemetry -in reference to possible lupus flare. We will check C3, C4, antidouble stranded DNA. We will start patient on methylprednisolone 40 mg q.8 hours. Check CK level, ESR. Obtain patient's home medications which will be reconciled once available. Obtain patient's medical records from [facility] and from her primary equipment engineering technician in [place]. I did inform the patient that we do not have a hospitality aide who comes to this hospital. The patient will need to follow up on hospitality aide on discharge needed . Continue patient on Levaquin. -in reference to troponin elevation. The patient currently denies any active chest. We will trend troponins q.6 hours. Obtain a echocardiogram. We will request consultation with Cardiology a1c indicative of impaired fasting glucose vs diabetes, tsh suppressed indicative of iatrogenic hyperthyroidim. -obtain PT evaluation -further orders per hospitalization course. RAHEEM AQUINO MD Mar 28, 2025 16:13
[2025-03-28] MEDS: LISINOPRIL 10 MG TABLET PO SCH (16:57)
--- NOTE | 2025-03-28 18:00 | NUR ---
PATIENT STATES HAS TAKEN OWN INDAPAMIDE, LEVOTHYROXINE, AND HYDROXYQUINOLINE AT THIS TIME.
[2025-03-28 20:00] VITALS: BP 130/73; PULSE 63; RESP 18; TEMP 97.8; O2SAT 97
[2025-03-28] MEDS: IPRATROPIUM BROMIDE NASAL SCH (20:21)
[2025-03-28] MEDS: DORZOLAMIDE HCL/TIMOLOL MALEAT DROPS 10 ML BOTTLE OU SCH (20:21)
[2025-03-28] MEDS: Cyclosporine 1 DROP OU SCH (20:21)
[2025-03-28] MEDS: BRIMONIDINE TARTRATE 0.2% 5 ML BOTTLE OU SCH (20:21)
[2025-03-29] VITALS (8 sets, daily range): BP systolic 105–133; BP diastolic 65–78; PULSE 61–88; RESP 16–18; TEMP 97.4–98.4; O2SAT 95–98
--- NOTE | 2025-03-29 05:48 | NUR ---
Pt. refused to take obi.m. dose of Levothyroxine; states takes her own medications w/ breakfast and not on an empty stomach.
[2025-03-29 06:51] LABS: IMMATURE GRANULOCYTE ABSOLUTE 0.36 K/uL (0-1); NUCLEATED RED BLOOD CELLS 0.0 % (0.0-0.19); PLATELET COUNT (AUTO) 174 K/uL (130-400); RED BLOOD CELL COUNT(AUTO) 3.66 MIL/uL (4.00-5.50); RED CELL DISTRIBUTION WIDTH 14.5 % (11.0-15.5); WHITE BLOOD COUNT (AUTO) 8.5 K/uL (4.8-10.8)
[2025-03-29 07:11] LABS: CREATININE 0.8 mg/dL (0.5-1.0); GLOMERULAR FILTR. RATE CALC 79.0 mL/min (>90); GLUCOSE,RANDOM 123.0 mg/dL (70-105); SODIUM SERUM 141.0 mmol/L (136-145); UREA NITROGEN, BLOOD 47.0 mg/dL (7-18)
[2025-03-29] MEDS ORDERED: LEVOTHYROXINE SODIUM PO SCH (07:30)
--- NOTE | 2025-03-29 08:30 | NUR ---
HOME MEDICATIONS Patient refusing to take any home medications provided by hospital; she states she already took all of her home medications because she needs to keep on her schedule. She will only agree to take the IV solumedrol and pepcid at this time. Patient also refuses to have home medications sent to security, pharmacy, or home. She was educated on unit policy. Patient refusing compliance at this time, signed refusal form for home medications to be removed and facility medications to be taken. Charge nurse Maria Del Rosario made aware of patient refusal to remove medications from room.
[2025-03-29] MEDS: INDAPAMIDE PO SCH (09:00)
[2025-03-29] MEDS ORDERED: INDAPAMIDE PO SCH (09:00)
[2025-03-29] MEDS ORDERED: LISINOPRIL 10 MG TABLET PO SCH (09:00)
--- NOTE | 2025-03-29 11:23 | NUR ---
DCP:HOME Pt currently lives at home with jayme Burnham. Pt reports that couple lives in [facility] and used to have a "hub" in [place], [place] but is in the process of selling that home and will now be staying in [place], [place] whenever they come into the [facility]. Pt has a wheelchair and walker that she uses to ambulate. Pt does not have a provider or home health agency. Pt is a and will be serviced by Dr. Brown at the [facility]. At [place] pt states that she will want to go home to [place] and will assist with transportation. Addendum: 03/29/25 at 1130 by BRANDEN ZAFAR SS Amended: Links added.
--- NOTE | 2025-03-29 11:47 | HMCSR ---
APPROVED REPORT EXAM: Two-dimensional and M-mode echocardiogram with Doppler and color Doppler. INDICATION ICD: troponin elevation 2D Dimensions RVDd3.0 cmLVEF(%)73.1 (>50%)LVED Vol(simp.)59.9 mL IVSd0.8 (0.7-1.1cm)FS(%)42 %LVES Vol(simp.)20.7 mL LVDd5.1 (3.8-5.6cm)LA (2D)4.4 (1.6-4.0cm)LVEF(%, simp.)65 % PWd1.0 (0.7-1.1cm)Ao Root(2D)3.0 (2.0-3.7cm)LA ESV INDEX (BP)36.41 mL/m2 LVDs2.9 (2.5-4.0cm)LVOT diam2.3 (1.8-2.4cm) IVC diam1.6 cm M-Mode Dimensions EPSS0.9 cm LA (MM)4.1 (1.6-4.0cm) Ao Root(MM)2.9 (2.0-3.7cm) Aortic Valve AoV Vmax1.6 m/Shanna Peak GR10.7 mmHgLVOT Vmax1.1 m/s AoV VTI0.4 mAo Mean GR5.6 mmHgLVOT VTI0.26 m BRIELLE (VMAX)2.72 cm2AVA (VTI) 2.6 cm2 Mitral Valve MV E Vmax74.6 cm/sDECEL Zlbj957 ms MV A Vmax91.5 cm/sP 1/2 T59 ms E/A ratio0.8MVA (PHT)3.7 cm2 TDI E/E' Medial9.7E/E' Tbtjeof13.6 Medial E' Peak V7.72 cm/sLateral E' Peak V7.07 cm/s Pulmonary Valve PV Vmax1.1 m/sPV VTI0.27 mPV Mean GR2.6 mmHg PV Peak GR5.0 mmHg Left Ventricle The left ventricle is normal size. There is normal LV segmental wall motion. Mild concentric left vaibhav tricular hypertrophy. LVEF is 60-65%. The left ventricular diastolic function is normal. Right Ventricle The right ventricle is normal size. The right ventricular systolic function is normal. Atria The left atrium is mildly dilated. The right atrium size is normal. Aortic Valve The aortic valve is normal in structure. No aortic regurgitation is present. There is no aortic valvu lar stenosis. Mitral Valve The mitral valve is normal in structure. Mitral regurgitation is trace. There is no mitral valve sten osis. Tricuspid Valve The tricuspid valve is normal in structure. There is trace tricuspid valve regurgitation noted. Pulmonic Valve Pulmonic valve is not well visualized. There is no pulmonic valvular regurgitation. Great Vessels The aortic root is normal in size. The IVC is normal in size and collapses >50% with inspiration. Pericardium There is no pericardial effusion. Other Information Quality : Average Conclusion The left ventricle is normal size. LVEF is 60-65% with normal LV segmental wall motion. Mild concentric left ventricular hypertrophy. The left ventricular diastolic function is normal. The right ventricular systolic function is normal. The left atrium is mildly dilated. No hemodynamically significant valvular abnormalities. There is no pericardial effusion.
--- NOTE | 2025-03-29 12:51 | PN ---
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 She does have multiple reasons for arthralgias including osteoarthritis a torn rotator cuff bilateral pes anserine bursitis as well as osteoarthritis of both hands. She was being treated in [place] where she was living as well as at the [place] in [place] and in [facility] by various document image technician fisher scallop and specialists in [place]. Most recently she was on a regimen of oral prednisone as well as Imuran. She states she was doing fairly well until about two weeks prior to admission in which she began having weakness and a flare-up of her lupus. Currently she feels a little bit better since she has been receiving methylprednisolone 40 mg q.6 hourly here. Review of systems 10 points reviewed and negative except as described above 03/29 patient is seen and examined at bedside, case discussed with the RN, no acute events overnight, the patient alert oriented x3, hemodynamically stable, she feels and looks weak. Blood pressure 105/72, afebrile, saturating normal on room air. WBCs with a normal range. UA and urine culture negative. We will monitor off antibiotics. Continue Solu-Medrol IV. Patient already evaluated by document image technician as an outpatient in [place], was given regimen of oral prednisone as well as Imuran. We will request Physical therapy to evaluate the patient, anticipate discharge home in the next 24 hours. Patient has a in [facility] ent. All questions answered. REVIEW OF SYSTEMS CONSTITUTIONAL: Denies chills, or night sweats. No unintentional weight loss reported. Positive for fever, myalgias, generalized malaise NEUROLOGICAL: Denies headache, amaurosis fugax, motor weakness, sensory deficit, vertigo/spinning sensation, gait abnormalities, or tremors. Positive for falls ENT: No hearing loss, otalgia, otorrhea, rhinitis, rhinorrhea, hoarseness, or sore throat. CARDIOVASCULAR: Denies any exertional angina, dyspnea on exertion, orthopnea, paroxysmal nocturnal dyspnea, palpitations, life-threatening arrhythmias, claudication. PULMONARY: Denies any cough, phlegm/sputum, hemoptysis, pleuritic chest pain. Positive for shortness of breaths GASTROINTESTINAL: Denies any type of dysphagia to either liquids or solids. Denies nausea, vomiting, pyrosis, early satiety, abdominal pain, diarrhea, constipation, or changes in stool consistency or caliber. Denies coffee-ground emesis, hematemesis, hematochezia, or melanotic stools. GENITOURINARY: Denies frequency, urgency, nocturia, hematuria or incontinence (Storage/Irritative symptoms.) Low urinary stream, straining to void, urinary intermittency or hesitancy, splitting of the voiding stream, terminal dribbling. ENDOCRINOLOGIC: Denies polyuria, polydipsia, polyphagia or heat/cold intolerances. HEMATOLOGIC: Denies thrombophilia/previous clots, or coagulopathy/bleeding diso rders. ONCOLOGIC: Denies personal history of malignancy. DERMATOLOGIC: Denies rashes or pruritus. PSYCHIATRIC: Denies any suicidal or homicidal ideation. Denies hallucinations. Multiple arthralgias PHYSICAL EXAM GENERAL APPEARANCE: The patient is awake, alert, and oriented, in no acute cardiopulmonary distress. NEUROLOGICAL: Cranial nerves II-XII grossly intact. Motor is 4/5 in bilateral upper and lower extremities proximal to distal. No sensory deficits. Patient's range of motion is intact in the upper and lower extremity HEENT: Face is symmetric. Pupils are equal and reactive. Extraocular movements are intact. NECK: Supple. No JVD. No thyromegaly. No submental, submandibular, pre- /postauricular, occipital or supraclavicular lymphadenopathy. CHEST: Normal chest expansion. No Telemetry. LUNGS: Absence of any rales, rhonchi or any wheezing. CARDIOVASCULAR: Regular. S1 and S2 normal. No appreciable rubs, murmurs or gallops. ABDOMEN: Soft, nontender, and nondistended. There is no rebound, voluntary guarding, or rigidity. : Deferred. No Singh. EXTREMITIES: Non-edematous and not cyanotic. No clubbing. Good capillary refill. SKIN: No skin breakdown. Vital Signs (last 8hr) Date Time Temp Pulse Resp B/P (MAP) Pulse Ox O2 Delivery O2 Flow Rate FiO2 03/29/25 11:48 98.1 72 18 105/72 98 Room Air 03/29/25 07:59 98.4 61 18 133/75 99 Room Air LABS: Laboratory: Test 03/29/25 11:32 03/29/25 06:26 03/28/25 03:56 03/27/25 21:52 Range/Units Whole Blood Glucose 118 H 70-110 MG/DL White Blood Count 8.5 4.8-10.8 K/uL Red Blood Count 3.66 L 4.00-5.50 MIL/uL Hemoglobin 11.1 L 12.0-16.0 g/dL Hematocrit 34.0 L 36-48 % Mean Corpuscular Volume 92.9 79-99 fL Mean Corpuscular Hemoglobin 30.3 27.0-33.0 pg Mean Corpuscular Hemoglobin Concent 32.6 32.0-36.0 g/dL Red Cell Distribution Width 14.5 11.0-15.5 % Platelet Count 174 130-400 K/uL Mean Platelet Volume 9.8 7.5-10.5 fL Immature Granulocyte % (Auto) 4.3 H 0-1 % Neutrophils (%) (Auto) 83.8 H 40.0-77.0 % Lymphocytes (%) (Auto) 5.7 L 21.0-51.0 % Monocytes (%) (Auto) 5.8 3.0-13.0 % Eosinophils (%) (Auto) 0.0 0.0-8.0 % Basophils (%) (Auto) 0.4 0.0-5.0 % Neutrophils # (Auto) 7.1 1.8-7.7 K/uL Lymphocytes # (Auto) 0.5 L 1.0-4.8 K/uL Monocytes # (Auto) 0.5 0.1-1.0 K/uL Eosinophils # (Auto) 0.00 0.00-0.70 K/uL Basophils # (Auto) 0.03 0.00-0.20 K/uL Absolute Immature Granulocyte (auto 0.36 0-1 K/uL Nucleated Red Blood Cells 0.0 0.0-0.19 % Sodium Level 141 136-145 mmol/L Potassium Level 3.9 3.5-5.1 mmol/L Chloride Level 107 101-111 mmol/L Carbon Dioxide Level 28 21-32 mmol/L Blood Urea Nitrogen 47 H 7-18 mg/dL Creatinine 0.8 0.5-1.0 mg/dL Glomerular Filtration Rate Calc 79 >90 mL/min Random Glucose 123 H 70-105 mg/dL Total Calcium 7.7 L 8.5-10.1 mg/dL Erythrocyte Sedimentation Rate < 1 0-30 MM/HR Troponin I High Sensitivity 162 *H 4-50 ng/L Test 03/27/25 16:51 03/27/25 13:37 Range/Units Lactic Acid Level 1.8 0.8-2.5 mmol/L Total Creatine Kinase 86 21-232 U/L Procalcitonin < 0.05 L 0.05-0.5 ng/mL Urine Color LIGHT-YELLOW YELLOW Urine Appearance CLEAR CLEAR Urine pH 7.0 5.0-8.0 Urine Specific [place] 1.008 1.001-1.031 Urine Protein NEGATIVE NEGATIVE mg/dL Urine Glucose (UA) NEGATIVE NEGATIVE mg/dL Urine Ketones NEGATIVE NEGATIVE mg/dL Urine Occult Blood NEGATIVE NEGATIVE Urine Nitrate NEGATIVE NEGATIVE Urine Bilirubin NEGATIVE NEGATIVE mg/dL Urine Urobilinogen 0.2 0.2-1.0 mg/dL Urine Leukocyte Esterase NEGATIVE NEGATIVE Nathanael/uL Current Medications Medications (Trade) Dose Ordered Sig/Hilda Route PRN Reason Start Time Stop Time Status Last Admin Dose Admin Acetaminophen (TYLenol 500MG TAB) 500 mg Q6H PRN PO MILD PAIN (1-3) 03/27/25 16:30 04/26/25 16:29 03/28/25 20:20 500 MG Aspirin (Aspirin 81mg Ec Tab) 81 mg DAILY PO 03/28/25 11:00 04/27/25 10:59 Atorvastatin Calcium (LIPItor 40MG) 80 mg HS PO 03/28/25 21:00 04/27/25 20:59 Brimonidine Tartrate (Alphagan P) 1 ML BID OU 03/28/25 21:00 04/27/25 20:59 03/28/25 20:21 1 ML Dorzolamide/ Timolol (Cosopt Eye Drops) 1 ML BID OU 03/28/25 21:00 04/27/25 20:59 03/28/25 20:21 1 ML Famotidine (Pepcid 20mg Vial) 20 mg BID IV 03/27/25 21:00 04/26/25 20:59 03/29/25 09:30 20 MG Home Med (Home Medication) BID NASAL 03/28/25 21:00 04/27/25 20:59 03/28/25 20:21 1 EACH Home Med (Home Medication) BID OU 10/19/25 21:00 04/27/25 20:59 03/28/25 20:21 1 EACH Home Med (Home Medication) DAILY PO 03/29/25 09:00 04/28/25 08:59 Hydroxychloroquine Sulfate (PLAQuenil 200MG) 300 mg DAILY PO 03/29/25 09:00 04/12/25 08:59 Insulin Human Regular (humuLIN R 100 UNIT/ML 3ML) INSULIN SLIDING SCAL... ACHS SQ 03/28/25 07:30 04/27/25 07:29 Levofloxacin/ Dextrose 100 ml @ 100 mls/hr ONCE STAT IV 03/27/25 14:07 03/27/25 15:06 DC 03/27/25 14:29 100 MLS/HR Levofloxacin/ Dextrose 100 ml @ 100 mls/hr Q24H IV 03/28/25 14:00 03/29/25 11:22 DC 03/28/25 16:58 100 MLS/HR Levothyroxine Sodium (SYNTHroid 112MCG TAB) 112 mcg SYN PO 03/29/25 06:30 04/28/25 06:29 Levothyroxine Sodium (SYNTHroid 25MCG TAB) 25 mcg SYN PO 03/29/25 06:30 04/28/25 06:29 Lisinopril (Prinivil 10mg) 10 mg DAILY PO 03/28/25 11:00 04/27/25 10:59 03/28/25 16:57 10 MG Lisinopril (Prinivil 10mg) 10 mg DAILY PO 03/29/25 09:00 03/28/25 10:46 DC Magnesium Sulfate 50 ml @ 0 mls/hr PROTOCOL PRN IV hypomagnesemia 03/27/25 16:30 04/26/25 16:29 Methylprednisolone Sodium Succinate (Solu-medROL 40MG) 40 mg Q8H IVP 03/27/25 16:30 04/26/25 16:29 03/29/25 09:30 40 MG Miscellaneous Medication (Indapamide ) 1 tab DAILY PO 03/29/25 09:00 03/28/25 10:46 DC Miscellaneous Medication (Levothyroxine Sodium ) 1 tab ACBKFST PO 03/29/25 07:30 03/28/25 11:00 DC Potassium Chloride 100 ml @ 100 mls/hr AD PRN IV POTASSIUM PROTOCOL 03/27/25 16:30 04/26/25 16:29 Potassium Chloride (K-Dur/Klor-Con 20meq) 20 meq AD PRN PO POTASSIUM PROTOCOL 03/27/25 16:30 04/26/25 16:29 03/28/25 16:59 20 MEQ Potassium Chloride (KCl 10% Elixir 20meq/15ml) 20 meq AD PRN PO POTASSIUM PROTOCOL 03/27/25 16:30 04/26/25 16:29 Sodium Chloride 1,000 ml @ 1,000 mls/hr Q1H STAT IV 03/27/25 12:10 03/27/25 13:09 DC 03/27/25 13:01 1,000 MLS/HR Topiramate (TopaMAX) 50 mg BID PO 03/28/25 21:00 04/27/25 20:59 DIAGNOSTICS / RADIOLOGY: [ ] ASSESSMENT: Possible lupus flare POA Fever Generalized weakness Immunosuppression History of SLE History of possible rheumatoid arthritis Hypothyroidism Debility History of Glaucoma Mild troponin elevation PLAN: NEURO: Minimize central acting medications as possible. Fall Precautions. Well lighted room through the day and minimize interruptions through the night to prevent acute delirium. PULMONARY: Supplemental 02 as needed BiPAP as necessary, for respiratory distress Titrate Fio2 to keep Spo2 > or = 90% DuoNebs and CPT as needed IS hourly while awake for pulmonary hygiene prn Out of bed to chair as tolerated Maintain aspiration precautions at all times CARDIOVASCULAR: Follow hemodynamics. Vital signs per facility protocol GI & NUTRITION: Continue nutritional support Aspirations precautions Prokinetic agents and laxatives as needed KIDNEYS & ELECTROLYTES: Strict monitoring of intake and output Daily weights Avoid nephrotoxic agents Monitor electrolytes and replace as needed Goal urine output of 30mL/hr or 0.5mL/kg/hr Medications to be dosed according to renal function. Avoid contrast if possible ENDOCRINE: Maintain blood glucose between 100-180 at all times. Insulin sliding scale for blood glucose management Hypoglycemia and hyperglycemia protocol in place INFECTIOUS DISEASE: Trend temperature, WBC and procalcitonin level Follow cultures, deescalate antibiotics as soon as possible. Panculture if new onset fever HEMATOLOGY & COAGULATION: Monitor H&H. Keep Hgb > 7 Transfuse 1 unit of PRBC for Hgb < 7 Transfuse 1 pack of platelets of platelets < 20, 000 Watch for any signs and symptoms of bleeding SKIN: Pressure ulcer prevention per facility protocol Specialty mattress as needed ORTHO/REHAB Continue PT/OT PRN: MEDICATIONS Tylenol 650 mg po every 4 hrs for fever zofran 4 mg IV every 6 hrs for n/v Hydralazine 5 mg IV every 4 hrs systolic pressure > 160 bowel regiment: lactulose 20 gm PO BID PRN constipation Supportive measures: Continue GI and DVT prophylaxis Disposition: Pending improvement in clinical condition All questions answered time spent: > 35 min MARCY CAMARGO MD Mar 29, 2025 12:51
--- NOTE | 2025-03-29 13:37 | NUR ---
Pt refuses PT services.
--- NOTE | 2025-03-29 15:58 | PN ---
[facility] CARDIOLOGY PROGRESS NOTE Date Patient Seen: Mar 29, 2025 Time of Visit: 15:53 Interval History:% ] no acute events overnight , 2Decho LVEF 60-65% , mild LVH , no wall motion or valvular abnormalities, Physical Examination: GENERAL: [No acute distress.] HEAD: [Normal with no signs of head trauma.] EYES: [PERRLA, EOMI, conjunctiva and sclera normal.] ENT: [Hearing grossly intact, normal oropharynx.] NECK: [Supple without JVD. There is no tenderness, lymphadenopathy, or masses. No thyromegaly. Normal carotid upstrokes without bruits.] LUNGS: [Clear breath sounds bilaterally. No wheezes, or rhonchi.] HEART: [Normal rate and rhythm. Normal S1 and S2 without mumurs, gallop or rub.] VASC: [Peripheral pulses +2 bilaterally.] ABD: [Bowel sounds normal, soft, nontender, no masses, no organomegaly. No audible bruits.] : [Not examined] LYMPH: [No lymphadenopathy noted.] EXT: [No clubbing, cyanosis or edema.] SKIN: [No rashes or lesions noted.] NEURO: [Awake, alert, and oriented x3. No focal sensory or strength deficits noted.] Laboratory: [ ] Hematology Labs: Test 03/29/25 06:26 03/28/25 03:56 Range/Units White Blood Count 8.5 4.8-10.8 K/uL Red Blood Count 3.66 L 4.00-5.50 MIL/uL Hemoglobin 11.1 L 12.0-16.0 g/dL Hematocrit 34.0 L 36-48 % Mean Corpuscular Volume 92.9 79-99 fL Mean Corpuscular Hemoglobin 30.3 27.0-33.0 pg Mean Corpuscular Hemoglobin Concent 32.6 32.0-36.0 g/dL Red Cell Distribution Width 14.5 11.0-15.5 % Platelet Count 174 130-400 K/uL Mean Platelet Volume 9.8 7.5-10.5 fL Immature Granulocyte % (Auto) 4.3 H 0-1 % Neutrophils (%) (Auto) 83.8 H 40.0-77.0 % Lymphocytes (%) (Auto) 5.7 L 21.0-51.0 % Monocytes (%) (Auto) 5.8 3.0-13.0 % Eosinophils (%) (Auto) 0.0 0.0-8.0 % Basophils (%) (Auto) 0.4 0.0-5.0 % Neutrophils # (Auto) 7.1 1.8-7.7 K/uL Lymphocytes # (Auto) 0.5 L 1.0-4.8 K/uL Monocytes # (Auto) 0.5 0.1-1.0 K/uL Eosinophils # (Auto) 0.00 0.00-0.70 K/uL Basophils # (Auto) 0.03 0.00-0.20 K/uL Absolute Immature Granulocyte (auto 0.36 0-1 K/uL Nucleated Red Blood Cells 0.0 0.0-0.19 % Erythrocyte Sedimentation Rate < 1 0-30 MM/HR Chemistry Labs: Test 03/29/25 15:17 03/29/25 06:26 03/27/25 21:52 03/27/25 16:51 Range/Units Whole Blood Glucose 115 H 70-110 MG/DL Sodium Level 141 136-145 mmol/L Potassium Level 3.9 3.5-5.1 mmol/L Chloride Level 107 101-111 mmol/L Carbon Dioxide Level 28 21-32 mmol/L Blood Urea Nitrogen 47 H 7-18 mg/dL Creatinine 0.8 0.5-1.0 mg/dL Glomerular Filtration Rate Calc 79 >90 mL/min Random Glucose 123 H 70-105 mg/dL Total Calcium 7.7 L 8.5-10.1 mg/dL Troponin I High Sensitivity 162 *H 4-50 ng/L Lactic Acid Level 1.8 0.8-2.5 mmol/L Total Creatine Kinase 86 21-232 U/L Procalcitonin < 0.05 L 0.05-0.5 ng/mL Diagnostics / Radiology: [Copy/Paste Echos/Imaging Report here] Impression and Plan: [[ Elevated troponins Abnormal ECG Lupus flare Hypertension Hyperlipidemia Obesity] Plan: # Elevated troponin: Patient presented with a lupus flare and denies any anginal symptoms or equivalents Her presenting ECG did reveal sinus rhythm with anterolateral T-wave inversion suggestive of ischemia Her troponins were weakly elevated, flattened trend and if since down trended Patient states proximally 4-5 years ago was admitted for acute systolic heart failure and underwent coronary angiogram was found to have mild nonobstructive CAD She was initiated on GDMT at that time and following several months she was found to have systolic recovery and has not been evaluated by Cardiology in over 4 years Low suspicion for ACS at this time. Continue with home lisinopril 10 mg q.day and start aspirin 81 mg q.day and Lipitor 40 mg q.h.s. 2Decho LVEF 60-65% , mild LVH , no wall motion or valvular abnormalities Please keep patient on telemetry. Monitor/replace electrolytes as needed Her elevated troponin is most likely due to her Lupus flare We will plan for an outpatient coronary CT Thank you for this consult. Cardiology will sign off at this time Ed reynolds MD ] ATTESTATION BY PHYSICIAN I have seen and examined the patient, reviewed the above documentation, participated in medical decision making, made necessary modifications, and agree with the treatment plan as documented by my mid-level provider above. MD BRAYAN Lerma JAMES R MD Mar 29, 2025 15:58
--- NOTE | 2025-03-29 19:30 | NUR ---
SHIFT CHANGE / ALCOHOL USE During bedside shift report patient and spouse in room eating meal, patient reports they are "celebrating" and had steaks, etc., there was two glasses on table and when asked what they were patient reported it to be wine. Patient was immediately told that alcohol use is prohibited and unacceptable at our facility, and it must be disposed of immediately. Patient started to try and excuse behavior by explaining that alcohol is given to you at other hospitals and had several other excuses, refusing to comply with the disposal. The hospital policy was made clear and patient again asked to dispose of alchohol in sink; explained security will be notified. Patient proceeded to say she knows wine "doesn't interact with any of her medications" and proceeds to quickly gulp down the half glass of wine. It was again told this was unacceptable behavior, she is hospitalized, it is unsafe behavior, and alcohol use is prohibited. Spouse again asked to dispose of the remaining wine, to which he proceeded to pour it down the sink. They claimed they did not have any more in room. Left room and attempted to notifiy security, but no response. Notified charge nurse Alanis, who was able to contact security. Alanis did speak with patient and spouse in room about situation.
[2025-03-30 04:00] VITALS: BP 139/84; PULSE 65; RESP 17; TEMP 97.6
[2025-03-30 05:03] LABS: NUCLEATED RED BLOOD CELLS 0.0 % (0.0-0.19); PLATELET COUNT (AUTO) 165.0 K/uL (130-400); RED BLOOD CELL COUNT(AUTO) 3.88 MIL/uL (4.00-5.50); RED CELL DISTRIBUTION WIDTH 14.5 % (11.0-15.5); WHITE BLOOD COUNT (AUTO) 7.6 K/uL (4.8-10.8)
[2025-03-30 05:22] LABS: ASPARTATE AMINOTRANSFERASE 17.0 U/L (10-37); CREATININE 0.8 mg/dL (0.5-1.0); GLOMERULAR FILTR. RATE CALC 79.0 mL/min (>90); GLUCOSE,RANDOM 130.0 mg/dL (70-105); SODIUM SERUM 142.0 mmol/L (136-145); TOTAL PROTEIN, SERUM 5.2 g/dL (6.0-8.3); UREA NITROGEN, BLOOD 35.0 mg/dL (7-18)
[2025-03-30 08:00] VITALS: BP 158/83; PULSE 70; RESP 19; TEMP 98.1; O2SAT 95
--- NOTE | 2025-03-30 11:30 | NUR ---
DISCHARGE DELAY: D/C ORDER IN PLACE BUT PATIENT REQUESTING PRESCRIPTION FOR RECTAL WOUND. PATIENT IS REFUSING TO BE SEEN BY WOUND CARE AND REQUESTING PROVIDER TO PRESCRIBE OINTMENT FOR AFFECTED AREA INSTEAD. CONTACTED DR CAMARGO WHO STATED HE WOULD COME BACK TO SEE THE PATIENTS WOUND BEFORE D/C TO POSSIBLY PRESCRIBE MEDICATION. Addendum: 03/30/25 at 1135 by OLMAN COTTRELL RN RN Amended: Links added.
[2025-03-30 12:00] VITALS: BP 112/65; PULSE 84; RESP 18; TEMP 97.8
--- NOTE | 2025-03-30 12:55 | PN ---
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 She does have multiple reasons for arthralgias including osteoarthritis a torn rotator cuff bilateral pes anserine bursitis as well as osteoarthritis of both hands. She was being treated in [place] where she was living as well as at the [facility] in [place] and in [facility] by various distribution manager metal machinist and specialists in [place]. Most recently she was on a regimen of oral prednisone as well as Imuran. She states she was doing fairly well until about two weeks prior to admission in which she began having weakness and a flare-up of her lupus. Currently she feels a little bit better since she has been receiving methylprednisolone 40 mg q.6 hourly here. Review of systems 10 points reviewed and negative except as described above 03/29 patient is seen and examined at bedside, case discussed with the RN, no acute events overnight, the patient alert oriented x3, hemodynamically stable, she feels and looks weak. Blood pressure 105/72, afebrile, saturating normal on room air. WBCs with a normal range. UA and urine culture negative. We will monitor off antibiotics. Continue Solu-Medrol IV. Patient already evaluated by distribution manager as an outpatient in [place], was given regimen of oral prednisone as well as Imuran. We will request Physical therapy to evaluate the patient, anticipate discharge home in the next 24 hours. Patient has a in [facility]. All questions answered. 03/30 patient is seen and examined at bedside, discussed with the RN, no acute events overnight, alert oriented x3, patient complaining of scattered ulcers in the buttock area, physical examination, there are some scattered superficial ulcers in the intragluteal reason and perirectal area. We will request wound care consultation. We will hold discharge for now. Continue to monitor off antibiotics. Continue with the Solu-Medrol IV while in the hospital. Upon discharge patient to follow up with the distribution manager as an outpatient in [place], already has Imuran at home. REVIEW OF SYSTEMS CONSTITUTIONAL: Denies chills, or night sweats. No unintentional weight loss reported. Positive for fever, myalgias, generalized malaise NEUROLOGICAL: Denies headache, amaurosis fugax, motor weakness, sensory deficit, vertigo/spinning sensation, gait abnormalities, or tremors. Positive for falls ENT: No hearing loss, otalgia, otorrhea, rhinitis, rhinorrhea, hoarseness, or sore throat. CARDIOVASCULAR: Denies any exertional angina, dyspnea on exertion, orthopnea, paroxysmal nocturnal dyspnea, palpitations, life-threatening arrhythmias, claudication. PULMONARY: Denies any cough, phlegm/sputum, hemoptysis, pleuritic chest pain. Positive for shortness of breaths GASTROINTESTINAL: Denies any type of dysphagia to either liquids or solids. Denies nausea, vomiting, pyrosis, early satiety, abdominal pain, diarrhea, constipation, or changes in stool consistency or caliber. Denies coffee-ground emesis, hematemesis, hematochezia, or melanotic stools. GENITOURINARY: Denies frequency, urgency, nocturia, hematuria or incontinence (Storage/Irritative symptoms.) Low urinary stream, straining to void, urinary intermittency or hesitancy, splitting of the voiding stream, terminal dribbling. ENDOCRINOLOGIC: Denies polyuria, polydipsia, polyphagia or heat/cold intolerances. HEMATOLOGIC: Denies thrombophilia/previous clots, or coagulopathy/bleeding disorders. ONCOLOGIC: Denies personal history of malignancy. DERMATOLOGIC: Denies rashes or pruritus. PSYCHIATRIC: Denies any suicidal or homicidal ideation. Denies hallucinations. Multiple arthralgias PHYSICAL EXAM GENERAL APPEARANCE: The patient is awake, alert, and oriented, in no acute cardiopulmonary distress. NEUROLOGICAL: Cranial nerves II-XII grossly intact. Motor is 4/5 in bilateral upper and lower extremities proximal to distal. No sensory deficits. Patient's range of motion is intact in the upper and lower extremity HEENT: Face is symmetric. Pupils are equal and reactive. Extraocular movements are intact. NECK: Supple. No JVD. No thyromegaly. No submental, submandibular, pre-/ postauricular, occipital or supraclavicular lymphadenopathy. CHEST: Normal chest expansion. No Telemetry. LUNGS: Absence of any rales, rhonchi or any wheezing. CARDIOVASCULAR: Regular. S1 and S2 normal. No appreciable rubs, murmurs or gallops. ABDOMEN: Soft, nontender, and nondistended. There is no rebound, voluntary guarding, or rigidity. : Deferred. No Singh. EXTREMITIES: Non-edematous and not cyanotic. No clubbing. Good capillary refill. SKIN: No skin breakdown. Vital Signs (last 8hr) Date Time Temp Pulse Resp B/P (MAP) Pulse Ox O2 Delivery O2 Flow Rate FiO2 03/30/25 08:00 95 Room Air* 0 21 03/30/25 08:00 98.1 70 19 158/83 95 Room Air LABS: Laboratory: Test 03/30/25 11:23 03/30/25 04:53 03/29/25 06:26 Range/Units Whole Blood Glucose 150 H 70-110 MG/DL White Blood Count 7.6 4.8-10.8 K/uL Red Blood Count 3.88 L 4.00-5.50 MIL/uL Hemoglobin 11.7 L 12.0-16.0 g/dL Hematocrit 35.3 L 36-48 % Mean Corpuscular Volume 91.0 79-99 fL Mean Corpuscular Hemoglobin 30.2 27.0-33.0 pg Mean Corpuscular Hemoglobin Concent 33.1 32.0-36.0 g/dL Red Cell Distribution Width 14.5 11.0-15.5 % Platelet Count 165 130-400 K/uL Mean Platelet Volume 9.2 7.5-10.5 fL Nucleated Red Blood Cells 0.0 0.0-0.19 % Sodium Level 142 136-145 mmol/L Potassium Level 3.9 3.5-5.1 mmol/L Chloride Level 103 101-111 mmol/L Carbon Dioxide Level 32 21-32 mmol/L Blood Urea Nitrogen 35 H 7-18 mg/dL Creatinine 0.8 0.5-1.0 mg/dL Glomerular Filtration Rate Calc 79 >90 mL/min Random Glucose 130 H 70-105 mg/dL Total Calcium 7.7 L 8.5-10.1 mg/dL Magnesium Level 2.40 1.80-2.40 mg/dL Total Bilirubin 0.5 0.2-1.0 mg/dL Aspartate Amino Transf (AST/SGOT) 17 10-37 U/L Alanine Aminotransferase (ALT/SGPT) 48 12-78 U/L Alkaline Phosphatase 28 L 50-136 U/L Total Protein 5.2 L 6.0-8.3 g/dL Albumin 2.7 L 3.5-5.0 g/dL Immature Granulocyte % (Auto) 4.3 H 0-1 % Neutrophils (%) (Auto) 83.8 H 40.0-77.0 % Lymphocytes (%) (Auto) 5.7 L 21.0-51.0 % Monocytes (%) (Auto) 5.8 3.0-13.0 % Eosinophils (%) (Auto) 0.0 0.0-8.0 % Basophils (%) (Auto) 0.4 0.0-5.0 % Neutrophils # (Auto) 7.1 1.8-7.7 K/uL Lymphocytes # (Auto) 0.5 L 1.0-4.8 K/uL Monocytes # (Auto) 0.5 0.1-1.0 K/uL Eosinophils # (Auto) 0.00 0.00-0.70 K/uL Basophils # (Auto) 0.03 0.00-0.20 K/uL Absolute Immature Granulocyte (auto 0.36 0-1 K/uL Current Medications Medications (Trade) Dose Ordered Sig/Hilda Route PRN Reason Start Time Stop Time Status Last Admin Dose Admin Acetaminophen (TYLenol 500MG TAB) 500 mg Q6H PRN PO MILD PAIN (1-3) 03/27/25 16:30 04/26/25 16:29 03/28/25 20:20 500 MG Aspirin (Aspirin 81mg Ec Tab) 81 mg DAILY PO 03/28/25 11:00 04/27/25 10:59 Atorvastatin Calcium (LIPItor 40MG) 80 mg HS PO 03/28/25 21:00 04/27/25 20:59 Brimonidine Tartrate (Alphagan P) 1 ML BID OU 03/28/25 21:00 04/27/25 20:59 03/28/25 20:21 1 ML Dorzolamide/ Timolol (Cosopt Eye Drops) 1 ML BID OU 03/28/25 21:00 04/27/25 20:59 03/28/25 20:21 1 ML Famotidine (Pepcid 20mg Vial) 20 mg BID IV 03/27/25 21:00 04/26/25 20:59 03/30/25 08:10 20 MG Home Med (Home Medication) BID NASAL 03/28/25 21:00 04/27/25 20:59 03/28/25 20:21 1 EACH Home Med (Home Medication) BID OU 03/28/25 21:00 04/27/25 20:59 03/28/25 20:21 1 EACH Home Med (Home Medication) DAILY PO 03/29/25 09:00 04/28/25 08:59 Hydroxychloroquine Sulfate (PLAQuenil 200MG) 300 mg DAILY PO 03/29/25 09:00 04/12/25 08:59 Insulin Human Regular (humuLIN R 100 UNIT/ML 3ML) INSULIN SLIDING SCAL... ACHS SQ 03/28/25 07:30 04/27/25 07:29 Levofloxacin/ Dextrose 100 ml @ 100 mls/hr ONCE STAT IV 03/27/25 14:07 03/27/25 15:06 DC 03/27/25 14:29 100 MLS/HR Levofloxacin/ Dextrose 100 ml @ 100 mls/hr Q24H IV 03/28/25 14:00 03/29/25 11:22 DC 03/28/25 16:58 100 MLS/HR Levothyroxine Sodium (SYNTHroid 112MCG TAB) 112 mcg SYN PO 03/29/25 06:30 04/28/25 06:29 Levothyroxine Sodium (SYNTHroid 25MCG TAB) 25 mcg SYN PO 03/29/25 06:30 04/28/25 06:29 Lisinopril (Prinivil 10mg) 10 mg DAILY PO 03/28/25 11:00 04/27/25 10:59 03/28/25 16:57 10 MG Lisinopril (Prinivil 10mg) 10 mg DAILY PO 03/29/25 09:00 03/28/25 10:46 DC Magnesium Sulfate 50 ml @ 0 mls/hr PROTOCOL PRN IV hypomagnesemia 03/27/25 16:30 04/26/25 16:29 Methylprednisolone Sodium Succinate (Solu-medROL 40MG) 40 mg Q8H IVP 03/27/25 16:30 04/26/25 16:29 03/30/25 08:10 40 MG Miscellaneous Medication (Indapamide ) 1 tab DAILY PO 03/29/25 09:00 03/28/25 10:46 DC Miscellaneous Medication (Levothyroxine Sodium ) 1 tab ACBKFST PO 03/29/25 07:30 03/28/25 11:00 DC Potassium Chloride 100 ml @ 100 mls/hr AD PRN IV POTASSIUM PROTOCOL 03/27/25 16:30 04/26/25 16:29 Potassium Chloride (K-Dur/Klor-Con 20meq) 20 meq AD PRN PO POTASSIUM PROTOCOL 03/27/25 16:30 04/26/25 16:29 03/28/25 16:59 20 MEQ Potassium Chloride (KCl 10% Elixir 20meq/15ml) 20 meq AD PRN PO POTASSIUM PROTOCOL 03/27/25 16:30 04/26/25 16:29 Sodium Chloride 1,000 ml @ 1,000 mls/hr Q1H STAT IV 03/27/25 12:10 03/27/25 13:09 DC 03/27/25 13:01 1,000 MLS/HR Topiramate (TopaMAX) 50 mg BID PO 03/28/25 21:00 04/27/25 20:59 DIAGNOSTICS / RADIOLOGY: [ ] ASSESSMENT: Possible lupus flare POA Fever Generalized weakness Immunosuppression History of SLE History of possible rheumatoid arthritis Hypothyroidism Debility History of Glaucoma Mild troponin elevation Scattered wounds perirectal area PLAN: patient is seen and examined at bedside, discussed with the RN, no acute events overnight, alert oriented x3, patient complaining of scattered ulcers in the buttock area, physical examination, there are some scattered superficial ulcers in the intragluteal reason and perirectal area. We will request wound care consultation. We will hold discharge for now. Continue to monitor off antibiotics. Continue with the Solu-Medrol IV while in the hospital. Upon di john patient to follow up with the distribution manager as an outpatient in [place], already has Imuran at home. NEURO: Minimize central acting medications as possible. Fall Precautions. Well lighted room through the day and minimize interruptions through the night to prevent acute delirium. PULMONARY: Supplemental 02 as needed BiPAP as necessary, for respiratory distress Titrate Fio2 to keep Spo2 > or = 90% DuoNebs and CPT as needed IS hourly while awake for pulmonary hygiene prn Out of bed to chair as tolerated Maintain aspiration precautions at all times CARDIOVASCULAR: Follow hemodynamics. Vital signs per facility protocol GI & NUTRITION: Continue nutritional support Aspirations precautions Prokinetic agents and laxatives as needed KIDNEYS & ELECTROLYTES: Strict monitoring of intake and output Daily weights Avoid nephrotoxic agents Monitor electrolytes and replace as needed Goal urine output of 30mL/hr or 0.5mL/kg/hr Medications to be dosed according to renal function. Avoid contrast if possible ENDOCRINE: Maintain blood glucose between 100-180 at all times. Insulin sliding scale for blood glucose management Hypoglycemia and hyperglycemia protocol in place INFECTIOUS DISEASE: Trend temperature, WBC and procalcitonin level Follow cultures, deescalate antibiotics as soon as possible. Panculture if new onset fever HEMATOLOGY & COAGULATION: Monitor H&H. Keep Hgb > 7 Transfuse 1 unit of PRBC for Hgb < 7 Transfuse 1 pack of platelets of platelets < 20, 000 Watch for any signs and symptoms of bleeding SKIN: Pressure ulcer prevention per facility protocol Specialty mattress as needed ORTHO/REHAB Continue PT/OT PRN: MEDICATIONS Tylenol 650 mg po every 4 hrs for fever zofran 4 mg IV every 6 hrs for n/v Hydralazine 5 mg IV every 4 hrs systolic pressure > 160 bowel regiment: lactulose 20 gm PO BID PRN constipation Supportive measures: Continue GI and DVT prophylaxis Disposition: Pending improvement in clinical condition All questions answered time spent: > 35 min MARCY CAMARGO MD Mar 30, 2025 12:55
[2025-03-30 16:00] VITALS: BP 135/75; PULSE 67; RESP 18; TEMP 98.7
--- NOTE | 2025-03-30 16:10 | CONS ---
CONSULTATION NOTE Date of Service: Mar 30, 2025 Reason for Consultation: [Perirectal wounds ] Requesting Physician: [Dr Kerr ] HISTORY OF PRESENT ILLNESS: Patient is evaluated at bedside in room 318 for initial wound care evaluation. Patient reports she started with wounds to perirectal region days prior to her admission to the hospital. Patient reports she has been applying zinc oxide and has noted that the wounds have worsened and patient is complaining of pain with occasional serosanguineous drainage from wounds. Patient denies any history of rash or ulcers to site. Patient is a 70-year-old female with past medical history of SLE, hypothyroidism,, history of VA history of CHF who presented to the hospital secondary to generalized weakness. Patient states for the past two weeks she has noted that she has been having generalized weakness with associated myalgias. She is also having episodes of fevers at home. She denies any chest pain, abdominal pain, nausea, vomiting. She has noted loose stools at home but it is not watery. She has not noted any melena, hematochezia, hematemesis. Denied any dysuria, hematuria. She does feel short of breath at rest and with exertion. She has not been able to ambulate much secondary to generalized weakness. She has been using her walker for ambulation. She states she was being seen by rheumatology in [facility] but thereafter moved to [place] for further care since she was unable to afford her visits. She has been currently seen by graphite grinder in [place]. She is currently taking Plaquenil and possibly Imuran. She was recently started on prednisone due to concern for lupus flare by her graphite grinder in [place]. She states she has been taking around 50 mg prednisone q.4 hours to treat her flare without improvement. She has been seen by multiple specialist in the past. REVIEW OF SYSTEMS CONSTITUTIONAL: Denies fever, chills, or fatigue. HEAD/FACE: No signs of trauma. EENT: Denies eye pain, blurred vision, double vision, or light sensitivity. RESPIRATORY: Denies shortness of breath, cough, wheezing CARDIOVASCULAR: Denies chest pain, palpitation, syncope GASTROINTESTINAL/ABDOMINAL: Denies abdominal pain, constipation, diarrhea, nausea or vomiting GENITOURINARY: Denies dysuria or hematuria. MUSCULOSKELETAL: Denies joint pain, tenderness, or trauma. INTEGUMENTARY: perirectal wounds NEUROLOGICAL/PSYCH: Denies anxiety, depression, heat or cold intolerance. PAST MEDICAL HISTORY: SLE, hypothyroidism, history of VA, history of CHF, history of cauda equina syndrome history of back surgeries PAST SURGICAL HISTORY: History of multiple back surgeries, history of knee surgery, history of shoulder surgery PAST SOCIAL HISTORY: Denied any smoking, alcohol, drug use. She is currently residing in [place] FAMILY HISTORY: Denied any pertinent family history Coded Allergies: Penicillins (Unverified Allergy, Unknown, 03/27/25) PHYSICAL EXAM EYES: Anicteric. Pupils equal and reactive. HENT: No oral thrush seen, moist Oral mucosa NECK: Supple, no JVD or thyromegaly. LUNGS: Good air entry. No rales, no rhonchi. CARDIOVASCULAR: S1, S2 regular. No murmur heard. ABDOMEN: Soft, non tender, bowel sounds present, no organomegaly CENTRAL NERVOUS SYSTEM: Awake, alert, oriented x 3. No focal deficits. SKIN: Multiple superficial ulcers noted to perirectal and left buttock region with erythematous bases with pain on palpation, no drainage noted, no foul odor noted. LYMPHATICS: No peripheral lymphadenopathy MUSCULOSKELETAL: No joint swelling, erythema or tenderness. EXTREMITIES: No cyanosis or clubbing BACK: No deformity GENITOURINARY: No dysuria or hematuria Vital Sign (Last 24 Hours) 03/30/25 03/30/25 08:00 12:00 Temp 97.9 Pulse 84 Resp 18 B/P (MAP) 112/65 Pulse Ox 97 O2 Delivery Room Air O2 Flow Rate 0 FiO2 21 Intake & Output (last 24hrs) 03/29/25 03/29/25 03/30/25 15:00 23:00 07:00 Intake Total 500 ml 930.0 ml Output Total 300 ml Balance 500 ml 630.0 ml LABS: Laboratory: Test 03/30/25 11:23 03/30/25 04:53 03/29/25 06:26 Range/Units Whole Blood Glucose 150 H 70-110 MG/DL White Blood Count 7.6 4.8-10.8 K/uL Red Blood Count 3.88 L 4.00-5.50 MIL/uL Hemoglobin 11.7 L 12.0-16.0 g/dL Hematocrit 35.3 L 36-48 % Mean Corpuscular Volume 91.0 79-99 fL Mean Corpuscular Hemoglobin 30.2 27.0-33.0 pg Mean Corpuscular Hemoglobin Concent 33.1 32.0-36.0 g/dL Red Cell Distribution Width 14.5 11.0-15.5 % Platelet Count 165 130-400 K/uL Mean Platelet Volume 9.2 7.5-10.5 fL Nucleated Red Blood Cells 0.0 0.0-0.19 % Sodium Level 142 136-145 mmol/L Potassium Level 3.9 3.5-5.1 mmol/L Chloride Level 103 101-111 mmol/L Carbon Dioxide Level 32 21-32 mmol/L Blood Urea Nitrogen 35 H 7-18 mg/dL Creatinine 0.8 0.5-1.0 mg/dL Glomerular Filtration Rate Calc 79 >90 mL/min Random Glucose 130 H 70-105 mg/dL Total Calcium 7.7 L 8.5-10.1 mg/dL Magnesium Level 2.40 1.80-2.40 mg/dL Total Bilirubin 0.5 0.2-1.0 mg/dL Aspartate Amino Transf (AST/SGOT) 17 10-37 U/L Alanine Aminotransferase (ALT/SGPT) 48 12-78 U/L Alkaline Phosphatase 28 L 50-136 U/L Total Protein 5.2 L 6.0-8.3 g/dL Albumin 2.7 L 3.5-5.0 g/dL Immature Granulocyte % (Auto) 4.3 H 0-1 % Neutrophils (%) (Auto) 83.8 H 40.0-77.0 % Lymphocytes (%) (Auto) 5.7 L 21.0-51.0 % Monocytes (%) (Auto) 5.8 3.0-13.0 % Eosinophils (%) (Auto) 0.0 0.0-8.0 % Basophils (%) (Auto) 0.4 0.0-5.0 % Neutrophils # (Auto) 7.1 1.8-7.7 K/uL Lymphocytes # (Auto) 0.5 L 1.0-4.8 K/uL Monocytes # (Auto) 0.5 0.1-1.0 K/uL Eosinophils # (Auto) 0.00 0.00-0.70 K/uL Basophils # (Auto) 0.03 0.00-0.20 K/uL Absolute Immature Granulocyte (auto 0.36 0-1 K/uL DIAGNOSTICS / RADIOLOGY: [ ] PROBLEM LIST : Medical Problems: Unspecified open wound to left buttock Unspecified open wound to perirectal region PLAN: Wound care to left buttock and perirectal Wounds-apply Venelex b.i.d. and p.r.n. apply nystatin powder b.i.d. and p.r.n. Start doxycycline 100 mg po BID x7 days Wound culture aerobic & anaerobic ordered/ HSV culture ordered Keep wounds clean and dry Offloading highly recommended turn q.2 hours Comorbidities per primary care team. Further management per hospital course. Thank you for the consult allowing us to participate in the care of the patient. On discharge please Make follow up appointment with Dr. Alex Adame at [facility]. Call to make an appointment at [phone]. Please fax patient referral to [phone]. ATTESTATION BY PHYSICIAN I have seen and examined the patient. I reviewed the documentation, medical decision making, and treatment plan as noted by the mid-level provider above. I agree with the findings and plan of care. ALEX ADAME MD, MICHELLE A [employer]ATE [employer] ASSISTANT Mar 30, 2025 16:10
[2025-03-30 20:00] VITALS: BP 125/69; PULSE 63; RESP 20; TEMP 98.3; O2SAT 100
[2025-03-30] MEDS: DOXYCYCLINE HYCLATE 100 MG TABLET PO SCH (21:48)
[2025-03-30] MEDS: BALSAM PERU/CASTOR OIL 60 GM TUBE TP SCH (21:48)
[2025-03-30 23:24] VITALS: BP 123/70; PULSE 64; RESP 16; TEMP 98.3
[2025-03-31 03:57] VITALS: BP 142/79; PULSE 70; RESP 16; TEMP 97.7
[2025-03-31 08:00] VITALS: BP 136/78; PULSE 70; RESP 18; TEMP 97.9; O2SAT 98
[2025-03-31 12:00] VITALS: BP 138/80; PULSE 68; RESP 18; TEMP 98.1
--- NOTE | 2025-03-31 13:26 | DS ---
Discharge Summary Hospital Course Summary: DATE OF SERVICE 03/31/2025 PATIENT ADMITTED TO THE HOSPITAL MARCH 27, 2025 WITH THE FOLLOWING HISTORY OF THE PRESENT ILLNESS 70-year-old female with past medical history of SLE, hypothyroidism,, history of SC history of CHF who presented to the hospital secondary to generalized weakness. Patient states for the past two weeks she has noted that she has been having generalized weakness with associated myalgias. She is also having episodes of fevers at home. She denies any chest pain, abdominal pain, nausea, vomiting. She has noted loose stools at home but it is not watery. She has not noted any melena, hematochezia, hematemesis. Denied any dysuria, hematuria. She does feel short of breath at rest and with exertion. She has not been able to ambulate much secondary to generalized weakness. She has been using her walker for ambulation. She states she was being seen by rheumatology in [facility] but thereafter moved to [place] for further care since she was unable to afford her visits. She has been currently seen by mold maker apprentice in [place]. She is currently taking Plaquenil and possibly Imuran. She was recently started on prednisone due to concern for lupus flare by her mold maker apprentice in [place]. She states she has been taking around 50 mg prednisone q.4 hours to treat her flare without improvement. She has been seen by multiple specialist in the past. Per patient she states there was also concern for voltage gated possible myopathy in the past. She has had ' white spots' in her brain in the past and was previously worked up for MS. She was being seen by a neurologist in [place] in the past. Patient's mold maker apprentice recommended her to be admitted to the hospital due to concern for lupus flare. She denied any cough, sputum production. Additionally she states she has had a history of SC in the past and has seen a water mangle tender in [place] in the past. Labs in the ER were notable for white count of 10.3, hemoglobin was 12.3, platelet count was 229 K, sodium was 137, potassium was 3.7, bicarb was , creatinine was 0.8, alk-phos was 39, troponin was mildly elevated at 167, TSH was low at 0.02 The patient underwent a chest x-ray which did not show any acute infiltrates. In the ER patient received 30 per mL kg fluids and was started on Levaquin. 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 She does have multiple reasons for arthralgias including osteoarthritis a torn rotator cuff bilateral pes anserine bursitis as well as osteoarthritis of both hands. She was being treated in [place] where she was living as well as at the [place] in [place] and in [facility] by various mold maker apprentice target man and specialists in [place]. Most recently she was on a regimen of oral prednisone as well as Imuran. She states she was doing fairly well until about two weeks prior to admission in which she began having weakness and a flare-up of her lupus. Currently she feels a little bit better since she has been receiving methylprednisolone 40 mg q.6 hourly here. Review of systems 10 points reviewed and negative except as described above 03/29 patient is seen and examined at bedside, case discussed with the RN, no acute events overnight, the patient alert oriented x3, hemodynamically stable, she feels and looks weak. Blood pressure 105/72, afebrile, saturating normal on room air. WBCs with a normal range. UA and urine culture negative. We will monitor off antibiotics. Continue Solu-Medrol IV. Patient already evaluated by mold maker apprentice as an outpatient in [place], was given regimen of oral prednisone as well as Imuran. We will request Physical therapy to evaluate the patient, anticipate discharge home in the next 24 hours. Patient has a in ag reement. All questions answered. 03/30 patient is seen and examined at bedside, discussed with the RN, no acute events overnight, alert oriented x3, patient complaining of scattered ulcers in the buttock area, physical examination, there are some scattered superficial ulcers in the intragluteal reason and perirectal area. We will request wound care consultation. We will hold discharge for now. Continue to monitor off antibiotics. Continue with the Solu-Medrol IV while in the hospital. Upon discharge patient to follow up with the mold maker apprentice as an outpatient in [place], already has Imuran at home. PATIENT IS SEEN AND EVALUATED BY WOUND CARE, RECOMMENDATIONS FOLLOWED. TODAY PATIENT ALERT ORIENTED X3, HEMODYNAMICALLY STABLE, PLAN TO DISCHARGE HOME TODAY. Supervisor Central Supply(s): CARDIOLOGY AND WOUND CARE Assessment/Plan: FINAL DIAGNOSIS Possible lupus flare POA Fever Generalized weakness Immunosuppression History of SLE History of possible rheumatoid arthritis Hypothyroidism Debility History of Glaucoma Mild troponin elevation Scattered wounds perirectal area Discharge Instructions: PATIENT TO BE DISCHARGED HOME TODAY, TO FOLLOW WITH HER PRIMARY CARE PHYSICIAN, WELL CARDIOLOGY AND WOUND CARE AN OUTPATIENT, RETURN TO HOSPITAL IF CONDITION CHANGES. PATIENT AGREED AND UNDERSTOOD THE INFORMATION PROVIDED. Home Medications: Reported Medications Magnesium Oxide (Magnesium Oxide) 400 Mg Tablet, 400 MG PO DAILY, TAB 03/28/25 Cholecalciferol (Vitamin D3) (Vitamin D3) 50 Mcg (2000 Unit) Capsule, 50 MCG PO DAILY, CAP 03/28/25 Topiramate (Topiramate) 50 Mg Tablet, 50 MG PO BID, TAB 03/28/25 Topiramate (Topiramate) 25 Mg Tablet, 25 MG PO DAILY for 7 Days, TAB 03/28/25 Aspirin (ASPIRIN) 325 Mg Tablet, 162 MG PO DAILY, TAB 03/28/25 Indapamide (Indapamide) 2.5 Mg Tablet, 1 TAB PO DAILY, TAB 0 Refills 03/28/25 Lisinopril (Lisinopril) 10 Mg Tablet, 1 TAB PO DAILY, TAB 0 Refills 03/28/25 Rosuvastatin Calcium (Rosuvastatin Calcium) 40 Mg Tablet, 1 TAB PO HS for high cholesterol, TAB 0 Refills 03/28/25 Prednisone (Prednisone) 20 Mg Tablet, 40 MG PO BID for 2 Days, TAB 03/28/25 Ipratropium [place] (Ipratropium [place]) 21 Mcg (0.03 %) [place], 2 SPRAY NS BID, ML 0 Refills 03/28/25 Levothyroxine Sodium (Levothyroxine Sodium) 137 Mcg Tablet, 1 TAB PO ACBKFST, TAB 0 Refills 03/28/25 Hydroxychloroquine Sulfate (Hydroxychloroquine Sulfate) 200 Mg Tablet, 300 MG PO DAILY, TAB 03/28/25 Dorzolamide HCl/Timolol Maleat (Dorzolamide-Timolol Eye Drops) 22.3 Mg-6.8 Mg/Ml Drops, 1 DROP OU BID, ML 0 Refills 03/28/25 Cyclosporine (Cyclosporine) 0.05 % Droperette, 1 DROP OU BID, EACH 0 Refills 03/28/25 Brimonidine Tartrate (Brimonidine Tartrate) 0.2 % Drops, 1 DROP OU BID, ML 0 Refills 03/28/25 Time spent arranging discharge: 31-60 minutes MARCY CAMARGO MD Mar 31, 2025 13:26
--- NOTE | 2025-03-31 14:42 | NUR ---
PATIENT DISCHARGED: IV REMOVED INTACT. PRESCRIPTIONS GIVEN TO PATIENT. ALL BELONGINGS GATHERED AND TAKEN BY SPOUSE. INSTRUCTIONS GIVEN ON WOUND CARE AND FOLLOW UP APPOINTMENTS. PATIENT VERBALIZED UNDERSTANDING. ALL QUESTIONS AND CONCERNS ANSWERED. PATIENT TRANSPORTED DOWN VIA PERSONAL WHEELCHAIR BY .
--- NOTE | 2025-03-31 17:28 | PN ---
PROGRESS NOTE Date of Service: Mar 31, 2025 Time of Service: 12:00 SUBJECTIVE: Patient is evaluated at bedside in room 318 with patient's at bedside. Patient report improvement in pain and discomfort to wounds to perirectal region and left buttock. Patient denies any complaints. Patient reports plan for discharge today. REVIEW OF SYSTEMS CONSTITUTIONAL: Denies fever, chills, or fatigue. HEAD/FACE: No signs of trauma. EENT: Denies eye pain, blurred vision, double vision, or light sensitivity. RESPIRATORY: Denies shortness of breath, cough, wheezing CARDIOVASCULAR: Denies chest pain, palpitation, syncope GASTROINTESTINAL/ABDOMINAL: Denies abdominal pain, constipation, diarrhea, nausea or vomiting GENITOURINARY: Denies dysuria or hematuria. MUSCULOSKELETAL: Denies joint pain, tenderness, or trauma. INTEGUMENTARY: perirectal wounds NEUROLOGICAL/PSYCH: Denies anxiety, depression, heat or cold intolerance. PHYSICAL EXAM EYES: Anicteric. Pupils equal and reactive. HENT: No oral thrush seen, moist Oral mucosa NECK: Supple, no JVD or thyromegaly. LUNGS: Good air entry. No rales, no rhonchi. CARDIOVASCULAR: S1, S2 regular. No murmur heard. ABDOMEN: Soft, non tender, bowel sounds present, no organomegaly CENTRAL NERVOUS SYSTEM: Awake, alert, oriented x 3. No focal deficits. SKIN: Multiple superficial ulcers noted to perirectal and left buttock region with erythematous bases with pain on palpation, no drainage noted, no foul odor noted. LYMPHATICS: No peripheral lymphadenopathy MUSCULOSKELETAL: No joint swelling, erythema or tenderness. EXTREMITIES: No cyanosis or clubbing BACK: No deformity GENITOURINARY: No dysuria or hematuria Vital Signs (last 8hr) Date Time Temp Pulse Resp B/P (MAP) Pulse Ox O2 Delivery O2 Flow Rate FiO2 03/31/25 12:00 98.1 68 18 138/80 97 Room Air LABS: Laboratory: Test 03/31/25 11:46 03/30/25 04:53 Range/Units Whole Blood Glucose 136 H 70-110 MG/DL White Blood Count 7.6 4.8-10.8 K/uL Red Blood Count 3.88 L 4.00-5.50 MIL/uL Hemoglobin 11.7 L 12.0-16.0 g/dL Hematocrit 35.3 L 36-48 % Mean Corpuscular Volume 91.0 79-99 fL Mean Corpuscular Hemoglobin 30.2 27.0-33.0 pg Mean Corpuscular Hemoglobin Concent 33.1 32.0-36.0 g/dL Red Cell Distribution Width 14.5 11.0-15.5 % Platelet Count 165 130-400 K/uL Mean Platelet Volume 9.2 7.5-10.5 fL Nucleated Red Blood Cells 0.0 0.0-0.19 % Sodium Level 142 136-145 mmol/L Potassium Level 3.9 3.5-5.1 mmol/L Chloride Level 103 101-111 mmol/L Carbon Dioxide Level 32 21-32 mmol/L Blood Urea Nitrogen 35 H 7-18 mg/dL Creatinine 0.8 0.5-1.0 mg/dL Glomerular Filtration Rate Calc 79 >90 mL/min Random Glucose 130 H 70-105 mg/dL Total Calcium 7.7 L 8.5-10.1 mg/dL Magnesium Level 2.40 1.80-2.40 mg/dL Total Bilirubin 0.5 0.2-1.0 mg/dL Aspartate Amino Transf (AST/SGOT) 17 10-37 U/L Alanine Aminotransferase (ALT/SGPT) 48 12-78 U/L Alkaline Phosphatase 28 L 50-136 U/L Total Protein 5.2 L 6.0-8.3 g/dL Albumin 2.7 L 3.5-5.0 g/dL DIAGNOSTICS / RADIOLOGY: [ ] PROBLEM LIST : Medical Problems: Unspecified open wound to left buttock Unspecified open wound to perirectal region PLAN: Wound care to left buttock and perirectal Wounds-apply Venelex b.i.d. and p.r.n. apply nystatin powder b.i.d. and p.r.n. Wound culture aerobic & anaerobic ordered/ HSV culture ordered- pending results Keep wounds clean and dry Offloading highly recommended turn q.2 hours Comorbidities per primary care team. Further management per hospital course. Thank you for the consult allowing us to participate in the care of the patient. On discharge please Make follow up appointment with Dr. Alex Adame at [facility]. Call to make an appointment at [phone]. Please fax patient referral to [phone]. ATTESTATION BY PHYSICIAN I have seen and examined the patient. I reviewed the documentation, medical decision making, and treatment plan as noted by the mid-level provider above. I agree with the findings and plan of care. ALEX ADAME MD, [facility] Mar 31, 2025 17:28
== END 2025-03-31 14:50 | disposition home or self-care (01) | DRG 546 ==
LOC: EDH 11:51 → EDHIP 16:10 → 3CH 19:00
PROVIDERS: ADMIT Internal Medicine; ATTEND Internal Medicine
DX: M32.9 Systemic lupus erythematosus, unspecified (principal); D84.9 Immunodeficiency, unspecified; S36.69XA Other injury of rectum, initial encounter; E03.9 Hypothyroidism, unspecified; I11.0 Hypertensive heart disease with heart failure; I50.9 Heart failure, unspecified; I25.10 Atherosclerotic heart disease of native coronary artery without angina pectoris; E78.5 Hyperlipidemia, unspecified; E66.9 Obesity, unspecified; M19.041 Primary osteoarthritis, right hand; M19.042 Primary osteoarthritis, left hand; S31.829A Unspecified open wound of left buttock, initial encounter; I25.2 Old myocardial infarction; Z68.27 Body mass index [BMI] 27.0-27.9, adult; X58.XXXA Exposure to other specified factors, initial encounter; Y93.89 Activity, other specified; Y92.89 Other specified places as the place of occurrence of the external cause; Y99.8 Other external cause status; Z79.899 Other long term (current) drug therapy
CPT/HCPCS: 36415; 70450; 71045; 80048; 80053; 80076; 81003; 82550; 82948; 83036; 83605; 83690; 83735; 84145; 84443; 84484; 85025; 85027; 85651; 86038; 86140; 86160; 86215; 86235; 87040; 87070; 87076; 87086; 87186; 87252; 93005; 93306; 96361; 96374; 99285; G0378; J1815; J1956; J2919; J7030; J1308

== ENCOUNTER 2025-04-01 11:48 | Emergency (ER) | payer OTHER ==
[~2025-04-01] VITALS: Ht 162.6 cm; Wt 76.2 kg
[~2025-04-01 11:48] MED LIST: ASPI-1012 PO; BRIM5DRO5 OU; CHOL2000 PO; CYCL1DRO14 OU; DORZ10DR10 OU; HYDR200T75 PO; INDA2.5T5 PO; IPRA21SP NS; LEVO137T2 PO; LISI10TA24 PO; MAGN400T53 PO; PRED20TA3 PO; ROSU40TA88 PO; TOPI-257 PO; TOPI-97 PO
--- NOTE | 2025-04-01 12:01 | ERN ---
ED Note History of Present Illness Stated Complaint: SENT FROM [place] Chief Complaint: Other Problems Time Seen by MD: 11:52 Dictation: PATIENT IS A 70-YEAR-OLD FEMALE COMING IN FROM A LOCAL [facility] WITH A REQUEST FOR READMISSION TO THE HOSPITAL. SHE WAS DISCHARGED YESTERDAY AFTER BEING TREATED FOR POSSIBLE ACUTE LUPUS FLARE, RA AND CONGESTIVE HEART FAILURE. SHE HAD BEEN ON SOLU-MEDROL 40 MG Q 8 HOURS IV. SHE STATES SHE WAS DISCHARGED IN PERFECT SHAPE AND WITH A AN HOUR HER FACE WAS SWOLLEN. SHE STATES SHE WENT TO THE [facility] OF THE DAY AND THEY LOOKED AT HER AND LOOKED AT A PICTURE OF HER AND SAID TO GO RIGHT BACK TO THE HOSPITAL FOR READMISSION. THEY ALSO ADVISED HER THAT SHE HAS HAD RECENT VISION CHANGES TO THE LEFT EYE AND WANT HER TO BE EVALUATED BY OPHTHALMOLOGY. THEY DID PERFORM ANY LABS NOR DID THEY REFER HER TO OPHTHALMOLOGY. Allergies: Coded Allergies: Penicillins (Unverified Allergy, Unknown, 03/27/25) Home Meds Reported Medications Magnesium Oxide (Magnesium Oxide) 400 Mg Tablet, 400 MG PO DAILY, TAB 03/28/25 Cholecalciferol (Vitamin D3) (Vitamin D3) 50 Mcg (2000 Unit) Capsule, 50 MCG PO DAILY, CAP 03/28/25 Topiramate (Topiramate) 50 Mg Tablet, 50 MG PO BID, TAB 03/28/25 Topiramate (Topiramate) 25 Mg Tablet, 25 MG PO DAILY for 7 Days, TAB 03/28/25 Aspirin (ASPIRIN) 325 Mg Tablet, 162 MG PO DAILY, TAB 03/28/25 Indapamide (Indapamide) 2.5 Mg Tablet, 1 TAB PO DAILY, TAB 0 Refills 03/28/25 Lisinopril (Lisinopril) 10 Mg Tablet, 1 TAB PO DAILY, TAB 0 Refills 03/28/25 Rosuvastatin Calcium (Rosuvastatin Calcium) 40 Mg Tablet, 1 TAB PO HS for high cholesterol, TAB 0 Refills 03/28/25 Prednisone (Prednisone) 20 Mg Tablet, 40 MG PO BID for 2 Days, TAB 03/28/25 Ipratropium [place] (Ipratropium [place]) 21 Mcg (0.03 %) [place], 2 SPRAY NS BID, ML 0 Refills 03/28/25 Levothyroxine Sodium (Levothyroxine Sodium) 137 Mcg Tablet, 1 TAB PO ACBKFST, TAB 0 Refills 03/28/25 Hydroxychloroquine Sulfate (Hydroxychloroquine Sulfate) 200 Mg Tablet, 300 MG PO DAILY, TAB 03/28/25 Dorzolamide HCl/Timolol Maleat (Dorzolamide-Timolol Eye Drops) 22.3 Mg-6.8 Mg/Ml Drops, 1 DROP OU BID, ML 0 Refills 03/28/25 Cyclosporine (Cyclosporine) 0.05 % Droperette, 1 DROP OU BID, EACH 0 Refills 03/28/25 Brimonidine Tartrate (Brimonidine Tartrate) 0.2 % Drops, 1 DROP OU BID, ML 0 Refills 03/28/25 Past Medical History Past Medical History: Angina, Renal Failure, Other Additional Past Medical Hx: LUPUS Surgical History: None Surgical History Other: BACK SURGERIES, JULIA KNEE SX History: Not Applicable RN Note Reviewed/Agreed w/PFSH: Yes Review of System Dictation CONSTITUTIONAL: NEGATIVE EXCEPT FOR HPI GB W HEAD/FACE: NEGATIVE EXCEPT FOR HPI FACIAL SWELLING EENT: NEGATIVE EXCEPT FOR HPI RESPIRATORY: NEGATIVE EXCEPT FOR HPI GASTROINTESTINAL/ABDOMINAL: NEGATIVE EXCEPT FOR HPI GENITOURINARY: NEGATIVE EXCEPT FOR HPI MUSCULOSKELETAL: NEGATIVE EXCEPT FOR HPI INTEGUMENTARY: NEGATIVE EXCEPT FOR HPI NEUROLOGICAL/PSYCH: NEGATIVE EXCEPT FOR HPI HEMATOLOGIC/LYMPHATIC: NEGATIVE EXCEPT FOR HPI ALL SYSTEMS NEGATIVE, EXCEPT NOTED ABOVE. 13 POINT REVIEW OF SYSTEMS ASSESSED AND ALL NEGATIVE EXCEPT FOR ABOVE. Initial Vital Sign VS Vital Signs Date Time Temp Pulse Resp B/P (MAP) Pulse Ox O2 Delivery O2 Flow Rate FiO2 04/01/25 11:56 97.9 94 18 177/94 98 0 Physical Exam Dictation VITAL SIGNS REVIEWED GENERAL APPEARANCE: ALERT, ORIENTED X 3, NO ACUTE DISTRESS, WELL DEVELOPED, NOURISHED. ANXIOUS HEAD AND FACE: NON-TRAUMATIC. NO OVERT FACIAL SWELLING OBSERVED. CRANIAL NERVES 2-12 GROSSLY INTACT EYES: PERRL, PINK CONJUNCTIVAS, EYELID NO TRAUMA, ANTERIOR CHAMBER WITH ARCUS SENILIS. EOMS INTACT. EARS: PINNAS INTACT AND NO SIGNS OF TRAUMA OR ERYTHEMA EAR CANALS CLEAR AND NO DISCHARGE TM NO ERYTHEMA NOSE: NO DISCHARGE, NO BLEEDING. OROPHARYNX: MOUTH NORMAL, TONGUE PINK, PHARYNX CLEAR,NO ERYTHEMA, TONSILS NO EXUDATES, NO ABSCESSES NOTED, MUCOUS MEMBRANE MOIST NECK: SUPPLE, NON-TENDER, NO THYROMEGALY, NO MASSES, NO JVD, NO BRUITS BREAST:DEFERRED CHEST:NO TENDERNESS, NO CREPITUS, NO PARADOXICAL MOVEMENT, NO RETRACTIONS LUNGS:CLEAR, WELL-VENTILATED, SYMMETRIC, NO RALES, NO WHEEZING, NO RHONCHI, NO STRIDOR, GOOD BREATH SOUNDS BILATERALLY HEART: REGULAR RATE, REGULAR RHYTHM, NO MURMUR, NO GALLOPS VASCULAR: NO PERIPHERAL EDEMA, ABDOMEN: SOFT, POSITIVE BOWEL SOUNDS, NONDISTENDED, NO GUARDING, NONTENDER, NO REBOUND, NO MASSES NO HEPATOMEGALY, NO SPLENOMEGALY, NO CARRANZA'S SIGN, NO HERNIAS. RECTAL: DEFERRED GENITAL: DEFERRED NEUROLOGICAL: NORMAL SPEECH, MOTOR FUNCTION INTACT, SENSORY FUNCTION INTACT MUSCULOSKELETAL: NECK NONTENDER, FULL RANGE OF MOTION, BACK NONTENDER, FULL RANGE OF MOTION, EXTREMITIES: NONTENDER, FULL RANGE OF MOTION SKIN: COLOR PINK, DRY, NO TURGOR, NO RASH, NO LACERATIONS, NO ABRASIONS, NO CONTUSIONS. LYMPHATIC: DEFERRED Results (Laboratory/Radiology) Laboratory/Radiology Laboratory Tests Test 04/01/25 12:00 04/01/25 12:09 Urine Color LIGHT-YELLOW (YELLOW) Urine Appearance CLEAR (CLEAR) Urine pH 8.0 (5.0-8.0) Urine Specific [place] 1.014 (1.001-1.031) Urine Protein NEGATIVE mg/dL (NEGATIVE) Urine Glucose (UA) NEGATIVE mg/dL (NEGATIVE) Urine Ketones NEGATIVE mg/dL (NEGATIVE) Urine Occult Blood NEGATIVE (NEGATIVE) Urine Nitrate NEGATIVE (NEGATIVE) Urine Bilirubin NEGATIVE mg/dL (NEGATIVE) Urine Urobilinogen 0.2 mg/dL (0.2-1.0) Urine Leukocyte Esterase NEGATIVE Nathanael/uL White Blood Count 11.5 K/uL (4.8-10.8) H Red Blood Count 4.44 MIL/uL (4.00-5.50) Hemoglobin 13.4 g/dL (12.0-16.0) Hematocrit 40.6 % (36-48) Mean Corpuscular Volume 91.4 fL (79-99) Mean Corpuscular Hemoglobin 30.2 pg (27.0-33.0) Mean Corpuscular Hemoglobin Concent 33.0 g/dL (32.0-36.0) Red Cell Distribution Width 14.8 % (11.0-15.5) Platelet Count 172 K/uL (130-400) Mean Platelet Volume 9.3 fL (7.5-10.5) Immature Granulocyte % (Auto) 6.6 % (0-1) H Neutrophils (%) (Auto) 80.1 % (40.0-77.0) H Lymphocytes (%) (Auto) 7.6 % (21.0-51.0) L Monocytes (%) (Auto) 5.1 % (3.0-13.0) Eosinophils (%) (Auto) 0.1 % (0.0-8.0) Basophils (%) (Auto) 0.5 % (0.0-5.0) Neutrophils # (Auto) 9.2 K/uL (1.8-7.7) H Lymphocytes # (Auto) 0.9 K/uL (1.0-4.8) L Monocytes # (Auto) 0.6 K/uL (0.1-1.0) Eosinophils # (Auto) 0.01 K/uL (0.00-0.70) Basophils # (Auto) 0.06 K/uL (0.00-0.20) Absolute Immature Granulocyte (auto 0.76 K/uL (0-1) Nucleated Red Blood Cells 0.2 % (0.0-0.19) H Sodium Level 140 mmol/L (136-145) Potassium Level 4.1 mmol/L (3.5-5.1) Chloride Level 100 mmol/L (101-111) L Carbon Dioxide Level 30 mmol/L (21-32) Blood Urea Nitrogen 29 mg/dL (7-18) H Creatinine 0.7 mg/dL (0.5-1.0) Glomerular Filtration Rate Calc 92 mL/min (>90) Random Glucose 132 mg/dL (70-105) H Total Calcium 8.5 mg/dL (8.5-10.1) Troponin I High Sensitivity 168 ng/L (4-50) *H B-Type Natriuretic Peptide 32 pg/mL (0-100) Labs Reviewed?: Yes EKG Comment: 1232/EKG SINUS RHYTHM/HEART RATE 92/AXIS NORMAL/LEFT ATRIAL ENLARGEMENT/PEAKED T-WAVES IN V 345 AND SIX ED Course ED Course Orders Procedure Category Date Status Time Visual Acuity Test CPOE 04/01/25 Transmitted (Er) 11:58 B-Type Natriuretic LAB 04/01/25 Complete Peptide 11:58 Cbc With Differential LAB 04/01/25 Complete 11:58 Troponin I High LAB 04/01/25 Complete Sensitivity 11:58 Urinalysis Profile LAB 04/01/25 Complete 11:58 12 Lead Ekg Tracing- EKG 04/01/25 Complete Technical 11:58 Basic Metabolic Panel LAB 04/01/25 Complete 11:58 Methylprednisolone PHA 04/01/25 In Process Succ 125mg (Solu-Medr 14:30 Current Medications Medications (Trade) Dose Ordered Sig/Hilda Route PRN Reason Start Time Stop Time Status Last Admin Dose Admin Methylprednisolone Sodium Succinate (Solu-medROL 125MG) 125 mg ONCE ONCE IM 04/01/25 14:30 04/01/25 14:31 Vital Signs Date Time Temp Pulse Resp B/P (MAP) Pulse Ox O2 Delivery O2 Flow Rate FiO2 04/01/25 11:56 97.9 94 18 177/94 98 0 1418/SPOKE TO PATIENT AND AT LENGTH AND THEY ARE AWARE THAT I HAVE HAD NO ACUTE FINDINGS TO HAVE PATIENT READMITTED TO THE HOSPITAL. SHE IS ON [facility]K [facility]. WE WILL DISCHARGE HER TO FO[facility] Score Response (Comments) Value EKG: Repolarization changes 1 Age: > 65yrs (+2) 2 Initial Troponin: Normal limit (0) 0 Total 3 Medical Decision Making MDM MDM: DIFFERENTIAL DIAGNOSIS: LUPUS FLARE/SEPSIS/ELECTROLYTE IMBALANCE/DEHYDRATION/ANXIETY/RA RATIONALE: TESTS CONSIDERED AND ORDERED SECONDARY TO SHARED DECISION MAKING INCLUDE: LABS/EKG PREVIOUS OUTSIDE RECORDS REVIEWED: OLD ER VISITS. RISK OF COMPLICATION AND/OR MORBIDITY OR MORTALITY OF PATIENT MANAGEMENT: NONE MEDICATIONS-PER MEDICATION RECONCILIATION NEED FOR HOSPITALIZATION: PATIENT DOES NOT MEET CRITERIA FOR HOSPITALIZATION. NONE NEED FOR EMERGENCY MAJOR/MINOR SURGERY: NO THERE ARE NO SOCIAL CONCERNS WITH THIS PATIENT. PRESCRIPTION DRUG MANAGEMENT NONE PRESCRIPTIONS WILL INCLUDE SYMPTOMATIC CARE PATIENT'S PRIOR EXTERNAL MEDICAL RECORDS FROM OTHER ER VISITS WERE REVIEWED BY ME INDICATED. PRIOR TESTING AND RESULTS FROM PREVIOUS VISITS WERE REVIEWED. PRIOR TESTS WERE TAKEN INTO ACCOUNT WITH MEDICAL DECISION MAKING AND RESOURCE UTILIZATION, INDEPENDENT HISTORIAN/HISTORIANS WERE USED TO OBTAIN COMPLETE MEDICAL HISTORY. I INDEPENDENTLY INTERPRETED THE TEST THAT WERE PERFORMED, RESULTS WERE REVIEWED BY ME AND CONSIDERED FINDINGS ON RADIOLOGY IF ORDERED. MEDICAL MANAGEMENT AND EXAMINATION INTERPRETATION DISCUSSIONS WERE HAD BY ME WITH OTHER QUALIFIED HEALTHCARE PROFESSIONALS INDICATED FOR THE PATIENT'S CARE. DX & DISP Disposition: Discharge Departure Impression: Primary Impression: Systemic lupus erythematosus (SLE) in adult Additional Impressions: Elevated troponin level not due to acute coronary syndrome, Hypochloremia, Hyperglycemia Condition: Stable Referrals: SELF,REFERRAL (PCP) Time of Disposition: 14:19 I have reviewed the case, and I agree with, Diagnosis and Plan ALVINA VÁZQUEZ Apr 01, 2025 12:01
[2025-04-01 12:19] LABS: IMMATURE GRANULOCYTE ABSOLUTE 0.76 K/uL (0-1); NUCLEATED RED BLOOD CELLS 0.2 % (0.0-0.19); PLATELET COUNT (AUTO) 172 K/uL (130-400); RED BLOOD CELL COUNT(AUTO) 4.44 MIL/uL (4.00-5.50); RED CELL DISTRIBUTION WIDTH 14.8 % (11.0-15.5); WHITE BLOOD COUNT (AUTO) 11.5 K/uL (4.8-10.8)
--- NOTE | 2025-04-01 12:19 | EKG ---
[facility] Test Date: 2025-04-01 Test Time: 12:14:23 Pat Name: JOSEPH GIL Department: ED Room: Gender: F Poker Room Manager: [id number] : [id number] Requested By: ALVINA VÁZQUEZ Order Number: [id number] Reading MD: Ed Zuleta Measurements Intervals [place] Rate: 92 P: 43 [place]: 127 QRS: -3 QRSD: 78 T: 140 QT: 368 QTc: 456 Interpretive Statements Sinus rhythm Left atrial enlargement Low voltage, precordial leads Nonspecific T abnrm, anterolateral leads Compared to ECG 03/27/2025 12:19:47 Low QRS voltage now present Early repolarization no longer present Possible ischemia no longer present Electronically Signed On 04-01-2025 16:13:39 CDT by Ed Zuleta Please click the below link to view image of tracing.
[2025-04-01 12:28] LABS: CREATININE 0.7 mg/dL (0.5-1.0); GLOMERULAR FILTR. RATE CALC 92.0 mL/min (>90); GLUCOSE,RANDOM 132.0 mg/dL (70-105); SODIUM SERUM 140.0 mmol/L (136-145); UREA NITROGEN, BLOOD 29.0 mg/dL (7-18)
[2025-04-01 12:28] LABS: ADD UA MICROSCOPIC NO; APPEARANCE,URINE CLEAR (CLEAR); GLUCOSE, URINE (UA) NEGATIVE (NEGATIVE); LEUKOCYTE ESTERASE ,URINE NEGATIVE Leu/uL (NEGATIVE); NITRATE,URINE NEGATIVE (NEGATIVE); OCCULT BLOOD,URINE NEGATIVE (NEGATIVE)
[2025-04-01 14:15] VITALS: BP 147/82; PULSE 74; RESP 20; TEMP 98.3; O2SAT 97
== END 2025-04-01 14:48 | disposition home or self-care (01) ==
LOC: EDH 11:48
DX: M32.9 Systemic lupus erythematosus, unspecified (principal); R73.9 Hyperglycemia, unspecified; E87.8 Other disorders of electrolyte and fluid balance, not elsewhere classified; Z79.52 Long term (current) use of systemic steroids; Z79.621 Long term (current) use of calcineurin inhibitor; Z79.82 Long term (current) use of aspirin; Z79.899 Other long term (current) drug therapy; Z88.0 Allergy status to penicillin
CPT/HCPCS: 99283; 84484; 80048; 83880; 85025; 81003; 36415; 96372; 93005; J2919